=== PATIENT | female | born 1975 | race Caucasian/White ===

== ENCOUNTER 2024-01-08 08:24 | Inpatient (IN) ==
--- NOTE | 2024-01-08 08:48 | Emergency Department Note ---
History of Present Illness General Chief complaint: Abdominal Pain Stated complaint: R SIDED ABD PAIN Time Seen by Provider: 01/08/24 08:44 History of Present Illness Maximum Pain Intensity: 10 This is a 48-year-old female who presents to the emergency department via private vehicle with complaints of "right side/flank pain". Patient has history of kidney stones and this feels similar. Pain began yesterday. She noted right flank pain and vomiting. No fevers or chills. She denies any trauma or injury. She has a history of tubal ligation and kidney stone removal. She denies any recent kidney stones. No dysuria or hematuria. No aggravating or alleviating factors. She denies taking any pain medicine in the past 8 hours. She did note that with going up steps today/ambulating she was a bit more short of breath than usual. She also note that the pain in the right flank area worsened with exertion. No history of [place] or PE. Home Medications Medication Instructions Recorded Confirmed Type albuterol sulfate 90 mcg/actuation 2 puff inhalation Q6H PRN chest 01/08/24 01/08/24 History aerosol inhaler tightness bupropion HCl 300 mg 24 hr tablet, 300 mg PO DAILY 01/08/24 01/08/24 History extended release (Wellbutrin XL) cetirizine 10 mg tablet 10 mg PO QAM 01/08/24 01/08/24 History escitalopram oxalate 10 mg tablet 10 mg PO DAILY 01/08/24 01/08/24 History escitalopram oxalate 20 mg tablet 20 mg PO DAILY 01/08/24 01/08/24 History fluticasone propionate 50 2 spray intranasal QAM 01/08/24 01/08/24 History mcg/actuation nasal spray,suspension metformin 500 mg tablet,extended 500 mg PO DAILY 01/08/24 01/08/24 History release 24 hr sumatriptan succinate 50 mg tablet 50 mg PO DIRECTED PRN Migraine 01/08/24 01/08/24 History Headache Allergies Allergy/AdvReac Type Severity Reaction Status Date / Time Penicillins Allergy Intermediate Hives Verified 01/08/24 14:45 Past Med/Surg History Problem List (Updated 01/08/24 @ 16:58 by Jatin Fernandez) Chest pain at rest Atypical chest pain Abnormal ECG (Acute) Exertional dyspnea (Acute) Acute right flank pain (Acute) Prediabetes HLD (hyperlipidemia) Asthma Mood disorder Right upper quadrant pain Social History Smoking Status: Former smoker Hx Alcohol Use: No Hx Substance Use: No Preferred Language: Citizen Of [place] Communication Ability: Effective Database Marketing Analyst Required: No Beliefs That Will Affect Care: None Current Living Situation: Spouse and Family Other Information That Helps Us Care for You: No Feels Safe at Home: Yes Safety Concerns: Feels Safe At This Time Assistive Devices: None Review of Systems A total of 10 systems reviewed and were otherwise negative Physical Exam Vital Signs Vital Signs - 24 hr 01/08/24 08:33 01/08/24 09:17 01/08/24 09:35 Temperature 36.6 C Temperature Source Temporal Artery Scan Pulse Rate 88 75 Pulse Rate [Apical] 74 Pulse Rate from SpO2 Sensor Respiratory Rate 16 16 Blood Pressure 123/77 Blood Pressure [Left Arm] 113/60 Blood Pressure Mean 92 Blood Pressure Mean [Left Arm] 77 Blood Pressure Position [Left Arm] Semi-fowlers Pulse Oximetry 98 92 Oxygen Delivery Method Room Air Room Air Sepsis Recent Fever Within 48 Hours No Sepsis New/Unexplained Change in Mental Status N/A Sepsis Action Taken by Nursing No Action Required 01/08/24 09:45 01/08/24 10:00 01/08/24 10:30 Temperature Temperature Source Pulse Rate 72 73 71 Pulse Rate [Apical] Pulse Rate from SpO2 Sensor 71 73 71 Respiratory Rate 30 H 15 15 Blood Pressure 120/68 124/83 142/100 H Blood Pressure [Left Arm] Blood Pressure Mean 85 96 114 Blood Pressure Mean [Left Arm] Blood Pressure Position [Left Arm] Pulse Oximetry 94 95 94 Oxygen Delivery Method Sepsis Recent Fever Within 48 Hours Sepsis New/Unexplained Change in Mental Status Sepsis Action Taken by Nursing 01/08/24 11:01 01/08/24 11:30 01/08/24 13:00 Temperature Temperature Source Pulse Rate 73 77 Pulse Rate [Apical] Pulse Rate from SpO2 Sensor 73 78 Respiratory Rate 19 15 Blood Pressure 142/75 H 150/81 H 123/84 Blood Pressure [Left Arm] Blood Pressure Mean 91 104 97 Blood Pressure Mean [Left Arm] Blood Pressure Position [Left Arm] Pulse Oximetry 96 96 Oxygen Delivery Method Sepsis Recent Fever Within 48 Hours Sepsis New/Unexplained Change in Mental Status Sepsis Action Taken by Nursing 01/08/24 13:30 Temperature Temperature Source Pulse Rate 75 Pulse Rate [Apical] Pulse Rate from SpO2 Sensor Respiratory Rate 14 Blood Pressure 137/88 Blood Pressure [Left Arm] Blood Pressure Mean 101 Blood Pressure Mean [Left Arm] Blood Pressure Position [Left Arm] Pulse Oximetry 95 Oxygen Delivery Method Sepsis Recent Fever Within 48 Hours Sepsis New/Unexplained Change in Mental Status Sepsis Action Taken by Nursing VITAL SIGNS - Vital signs and nursing notes were reviewed. Stable and afebrile. GENERAL -48-year-old female appearing her stated age who is in no acute distress. Communicates well with provider and answers questions appropriately. SKIN - Without rashes. No meningeal or petechial rash. HEAD - NC/AT. EYES - Sclera anicteric. NECK - Neck with FROM. No nuchal rigidity. LUNGS - Chest wall symmetric without accessory muscle use, intercostals retractions, or central cyanosis. Normal vesicular breath sounds CTA B/L. No wheezes, rales, or rhonchi appreciated. CARDIAC - RRR ABDOMEN - Abdominal contour normal without pulsations or visible masses. BS normoactive all four quadrants. No tenderness, palpable masses, hepatosplenomegaly, or ascites noted. EXTREMITIES - No clubbing or peripheral cyanosis. +5/5 strength noted in UE/LE bilaterally. NEUROLOGIC - Cranial nerves II through XII grossly intact. PSYCH -alert, oriented and pleasant on exam. Pt is very pleasant and interacts well with examiner. Course Administered Medications Acetaminophen (Acetaminophen 325 Mg Tab) 650 mg PO Q6H [facility] Stop: 02/08/24 09:59 Last Admin: 01/09/24 15:53 Dose: 650 mg Documented By: Admin: 01/09/24 10:49 Dose: 650 mg Documented By: JANIS Aspirin (Aspirin 81 Mg Ectab) 81 mg PO QAM [facility] Stop: 02/08/24 08:59 Last Admin: 01/09/24 10:31 Dose: 81 mg Documented By: JANIS Atorvastatin Calcium (Atorvastatin 40 Mg Tab) 40 mg PO QAM [facility] Stop: 02/08/24 12:14 Last Admin: 01/09/24 13:23 Dose: 40 mg Documented By: JANIS Bupropion HCl (Bupropion Xl 300 Mg Tabcr) 300 mg PO DAILY [facility] Stop: 02/08/24 08:59 Last Admin: 01/09/24 10:31 Dose: 300 mg Documented By: JANIS Cetirizine HCl (Cetirizine Hcl 10 Mg Tablet) 10 mg PO QAM [facility] Stop: 02/08/24 08:59 Last Admin: 01/09/24 10:31 Dose: 10 mg Documented By: JANIS Diclofenac Sodium (Diclofenac Sod 1% Gel 100 Gm Tube) 4 gm EXT Q6H [facility]; Protocol Stop: 02/08/24 09:59 Last Admin: 01/09/24 15:54 Dose: Not Given Documented By: Admin: 01/09/24 10:49 Dose: 4 gm Documented By: JANIS Docusate Sodium (Docusate Sodium 100 Mg Cap) 100 mg PO BID [facility] Stop: 02/08/24 11:59 Last Admin: 01/09/24 13:22 Dose: 100 mg Documented By: JANIS Enoxaparin Sodium (Enoxaparin Inj 40 Mg/0.4 Ml Syr) 40 mg SQ Q24H [facility] Stop: 02/07/24 16:59 Last Admin: 01/08/24 16:51 Dose: 40 mg Documented By: SUSANA Escitalopram Oxalate (Escitalopram Oxalate 10 Mg Tab) 10 mg PO DAILY [facility] Stop: 02/08/24 08:59 Last Admin: 01/09/24 10:32 Dose: 10 mg Documented By: JANIS Escitalopram Oxalate (Escitalopram Oxalate 20 Mg Tab) 20 mg PO DAILY [facility] Stop: 02/08/24 08:59 Last Admin: 01/09/24 10:32 Dose: 20 mg Documented By: JANIS Fluticasone Propionate (Fluticasone Propionate Na Spr 16 Gm Btl) 2 sprays NA QAM [facility] Stop: 02/08/24 08:59 Last Admin: 01/09/24 12:21 Dose: Not Given Documented By: JANIS Insulin Aspart (Insulin Aspart Per Unit Charge) 0 units SC ACHS [facility] Stop: 02/07/24 20:59 Last Admin: 01/09/24 13:22 Dose: 4 units Documented By: JANIS Co-signed By: CARRIE Admin: 01/09/24 09:34 Dose: Not Given Documented By: Admin: 01/08/24 20:50 Dose: Not Given Documented By: COLEMAN Losartan Potassium (Losartan Potassium 25 Mg Tab) 12.5 mg PO QAM [facility] Stop: 02/08/24 12:14 Last Admin: 01/09/24 13:23 Dose: 12.5 mg Documented By: JANIS Methocarbamol (Methocarbamol 500 Mg Tablet) 500 mg PO TID PRN PRN Reason: Moderate Pain (Scale 4, 5, 6) Stop: 02/07/24 14:49 Last Admin: 01/09/24 10:35 Dose: 500 mg Documented By: Admin: 01/08/24 21:59 Dose: 500 mg Documented By: COLEMAN Morphine Sulfate (Morphine Sulfate 2 Mg/Ml Carp) 1 mg IV Q4H PRN PRN Reason: Pain Stop: 01/22/24 14:49 Last Admin: 01/09/24 06:11 Dose: 1 mg Documented By: Admin: 01/09/24 02:10 Dose: 1 mg Documented By: COLEMAN Oxycodone HCl (Oxycodone Hcl Ir 5 Mg Tab (Immediate Release)) 5 mg PO Q6H PRN PRN Reason: Moderate Pain (Scale 4, 5, 6) Stop: 01/23/24 09:53 Last Admin: 01/09/24 14:43 Dose: 5 mg Documented By: JANIS Discontinued Medications Aspirin (Aspirin 81 Mg Ectab) 81 mg PO ONCE ONE Stop: 01/08/24 16:05 Last Admin: 01/08/24 16:51 Dose: 81 mg Documented By: SUSANA Hydromorphone HCl (Hydromorphone Inj 0.5 Mg/0.5 Ml Syr) 0.5 mg IV NOW STA Stop: 01/08/24 10:08 Last Admin: 01/08/24 10:11 Dose: 0.5 mg Documented By: CEF Sodium Chloride (Nss) 1,000 mls @ 999 mls/hr IV .Q1H1M [facility] Stop: 01/08/24 10:00 Last Infusion: 01/08/24 11:32 Dose: Infused Documented By: Admin: 01/08/24 09:03 Dose: 999 mls/hr Documented By: CEF Ioversol (Optiray 320 125ml) 118 ml IV ONCE ONE Stop: 01/08/24 12:37 Last Admin: 01/08/24 12:36 Dose: 118 ml Documented By: CALI Ketorolac Tromethamine (Ketorolac Tromethamine 15 Mg/Ml Vial) 10 mg IV NOW ONE Stop: 01/08/24 08:49 Last Admin: 01/08/24 08:59 Dose: 10 mg Documented By: FUAD Ondansetron HCl (Ondansetron Inj 2 Mg/Ml 2 Ml Vial) 4 mg IV NOW STA Stop: 01/08/24 08:49 Last Admin: 01/08/24 08:59 Dose: 4 mg Documented By: FUAD Medical Decision Making Laboratory Data 01/09/24 05:53 01/09/24 05:53 Lab Results 01/08/24 01/08/24 Range/Units 09:04 12:01 WBC 6.60 (4.8-10.8) K/ul RBC 4.07 L (4.20-5.40) M/uL Hgb 12.3 (12.0-16.0) g/dl Hct 37.5 (37.0-47.0) % MCV 92.1 (80.0-100.0) fL MCH 30.2 (25.0-34.0) pg MCHC 32.8 (32.0-36.0) g/dL RDW Std Deviation 43.3 (36.4-46.3) fL RDW Coeff of Matesu 12.9 (11.5-14.5) % Plt Count 237 (130-400) K/uL MPV 9.3 L (9.4-12.4) fL Immature Gran % (Auto) 0.5 % Neut % (Auto) 63.7 % Lymph % (Auto) 26.8 % Wells % (Auto) 6.2 % Eos % (Auto) 2.0 % Baso % (Auto) 0.8 % Neut # (Auto) 4.21 (1.40-6.50) K/uL Lymph # (Auto) 1.77 (1.20-3.40) K/uL Wells # (Auto) 0.41 (0.11-0.59) K/uL Eos # (Auto) 0.13 (0.00-0.50) K/uL Baso # (Auto) 0.05 (0.00-0.20) K/uL Immature Gran # (Auto) 0.03 (0.01-0.20) K/uL Sodium 138 (136-145) mmol/L Potassium 3.9 (3.5-5.1) mmol/L Chloride 103 (98-107) mmol/L Carbon Dioxide 29 (21-32) mmol/L Anion Gap 6 (3-11) BUN 14 (6-23) mg/dl Creatinine 0.80 (0.6-1.2) mg/dl Est Cr Clr Drug Dosing 98.9 ml/min Est GFR ( Amer) 101.0 ml/min Est GFR (Non-Af Amer) 87.2 ml/min BUN/Creatinine Ratio 17.5 (10-20) Glucose 120 H (70-99(Fasting)) mg/dl Calcium 8.7 (8.6-10.3) mg/dl Total Bilirubin 0.3 (0.2-1.0) mg/dl AST 12 L (13-39) U/L ALT 15 (7-52) U/L Alkaline Phosphatase 70 (34-104) U/L Troponin I High Sens < 2.3 (0-14) pg/ml Total Protein 6.6 (6.0-8.3) gm/dl Albumin 3.9 (3.4-5.0) gm/dl Globulin 2.7 (2.5-4.0) gm/dl Albumin/Globulin Ratio 1.4 (0.9-2) Lipase 22 (11-82) U/L HCG, Qual Negative (Negative) Urine Color Yellow Urine Appearance Clear (Clear) Urine pH 7.0 (4.5-7.5) Ur Specific Ford 1.025 (1.000-1.030) Urine Protein Negative (Negative) Urine Glucose (UA) Negative (Negative) Urine Ketones Negative (Negative) Urine Blood Negative (Negative) Urine Nitrite Negative (Negative) Urine Bilirubin Negative (Negative) Urine Urobilinogen Negative (Negative) Ur Leukocyte Esterase Negative (Negative) Imaging Data Radiologist's Impression: Abdomen/Pelvis CT 01/08/24 08:48 CT SCAN OF THE ABDOMEN AND PELVIS WITHOUT IV CONTRAST CLINICAL HISTORY: Right flank pain. COMPARISON STUDY: No priors. TECHNIQUE: CT scan of the abdomen and pelvis is performed from the lung bases to the proximal femora. Images are reviewed in the axial, sagittal, and coronal planes. IV contrast was not administered for this examination. A dose lowering technique was utilized adhering to the principles of ALARA. CT DOSE: 1452.68 mGy.cm FINDINGS: Lung bases: The heart is normal in size and without pericardial effusion. There is a 5 mm left lower lobe pulmonary nodule seen on image #16. The lung bases are otherwise clear. Liver: The unenhanced liver is enlarged, measuring 18.7 cm in length. Attenuation is diffusely diminished indicating steatosis. Fatty sparing is seen adjacent to the gallbladder fossa. There is no intrahepatic biliary ductal dilatation. Gallbladder: Unremarkable. Spleen: Normal in size and attenuation. Pancreas: Unremarkable. Adrenal glands: Unremarkable. Kidneys: The unenhanced kidneys are normal in size and without hydronephrosis. No renal calculi are identified and there is no ureteral stone. There is no evidence of contour deforming renal mass lesion. Abdominal vasculature: The abdominal aorta is normal in course and caliber. Bowel: There are scattered colonic diverticula without CT evidence of acute diverticulitis. No bowel obstruction is seen. The appendix is well-visualized and normal. Peritoneum: There is no intraperitoneal free air or abdominal ascites. There is a fat-containing umbilical hernia. Lymphadenopathy: None. Pelvic viscera: The bladder is normal as visualized. The uterus is mildly enlarged, heterogeneous, lobular suggesting fibroids. No adnexal lesion is seen. Skeletal structures: No lytic or blastic lesions are seen. Sclerotic change is noted in the sacroiliac joints. IMPRESSION: 1. No acute infectious or inflammatory findings are identified in the abdomen or pelvis. 2. Hepatomegaly and hepatic steatosis. 3. A 5 mm pulmonary nodule is seen at the left lung base. This is not highly suspicious, and a 3-month follow-up chest CT is recommended for reassessment and full evaluation of the thorax. 4. The appearance of the uterus suggests fibroids. 5. Additional findings as above. ACT 112: Negative or not required by law. Electronically signed by: Yeyo Celis M.D. 01/08/2024 11:28 AM Chest CTA 01/08/24 11:49 CT angio chest PE protocol CLINICAL HISTORY: R flank pain TECHNIQUE: Multidetector row helical CT of the chest was performed with angiographic protocol. Coronal and sagittal reformations were obtained. Coronal and sagittal MIPS were obtained from the axial data set and were submitted for review. Automated dose lowering techniques and/or adjustment according to patient size were utilized for this exam. CT DOSE: 845.24 mGy.cm Comparison: None available at the time of this dictation. FINDINGS: Lungs and pleura: There is a 5 mm nodule of the left lung base (series 4 image 169). Heart and pericardium: Heart size is normal. No pericardial effusion. Vessels: Evaluation for pulmonary embolism is limited due to suboptimal contrast timing. No evidence of central, lobar, or segmental embolus. Mediastinum and nancy: Unremarkable. Chest wall and lower neck: Unremarkable. Abdomen: For findings below the diaphragm, please refer to CT of the abdomen dated the same. Bones: Mild degenerative changes are seen. IMPRESSION: 1. No acute abnormality and in particular no evidence of pulmonary embolus. 2. Small pulmonary nodule is in the left lower lobe. According to Fleischner criteria, no follow-up is required in low risk patients, in high-risk patients, a 12 month follow-up CT can be optionally performed. ACT 112: Negative or not required by law. Electronically signed by: Ramiro Ni M.D. 01/08/2024 12:51 PM MDM Narrative Patient was seen and evaluated as above in room A09. Review was performed of triage nursing notes and vital signs. Patient presents with right flank pain. History of kidney stones. Options of care were discussed with the patient. IV access was established. Labs were drawn. IV Toradol was ordered, IV fluids for hydration, as well as IV Zofran for nausea. She was reevaluated with minimal improvement. Labs reveal no leukocytosis or concerning anemia. No emergent metabolic disturbance. Mild hyperglycemia 120. Troponin negative. hCG negative. Lipase normal. Urinalysis negative. CT scan abdomen/pelvis was essentially negative for acute process. Incidentals reviewed with the patient. Decision was made to proceed with a CTA noting the right sided pain worse with exertion but also exertional dyspnea today. No PE seen on the CTA. EKG was also performed and abnormalities were noted. Interpretation normal sinus rhythm at a rate of 74 bpm. QTc 468. QRS 82. Prolonged QT noted. T wave inversions noted. Although the patient's presentation is less likely be cardiac in nature, noting the abnormal EKG without previous to compare, exertional symptoms in the setting of exertional dyspnea today we will proceed with further evaluation and management in the inpatient setting. Case discussed with the hospitalist service. Please refer to further documentation regarding her stay. GCS: 15 In the evaluation and treatment of this patient the following differential diagnoses were entertained: [place], PE, pericarditis, costochondritis, renal infarct, kidney stone, UTI, pyelonephritis, acute cholecystitis, among others Impression & Plan Acute right flank pain, Exertional dyspnea, Abnormal ECG Discharge Plan Visit Data Chief Complaint: Abdominal Pain Stated Complaint: R SIDED ABD PAIN ED Provider: Asad Cox ED Midlevel Provider: Carlos Rich Discharge Problem: Acute right flank pain, Exertional dyspnea, Abnormal ECG Patient Disposition: Admitted As Inpatient Condition: Good Discharge Instructions Interventions: ED Discharge Assessment Last Done: 01/08/24 15:08 Addendum January 09, 2024 16:40 I was consulted by the Advanced Practice Provider and was substantively involved in the patient's visit.This includes aspects of the HPI, MDM, diagnostic interpretations, and disposition/plan. I discussed the case with the ILAN and agree with the findings and plan as documented in ILAN Allenat 's note.
[2024-01-08] MEDS: ONDANSETRON INJ 2 MG/ML 2 ML VIAL IV STA (08:59)
[2024-01-08] MEDS: KETOROLAC TROMETHAMINE 15 MG/ML VIAL IV ONE (08:59)
[2024-01-08] MEDS: SODIUM CHLORIDE 0.9% 1,000 ML IV SCH (09:03)
[2024-01-08 09:31] LABS: Basophils # (auto) 0.05 K/uL (0.00-0.20); Basophils % (auto) 0.8 %; Eosinophils # (auto) 0.13 K/uL (0.00-0.50); Hematocrit (blood only) 37.5 % (37.0-47.0); Hemoglobin 12.3 g/dl (12.0-16.0); Immature Granulocytes # (auto) 0.03 K/uL (0.01-0.20); Immature Granulocytes % (auto) 0.5 %; Lymphocytes # (auto) 1.77 K/uL (1.20-3.40); Lymphocytes % (auto) 26.8 %; Mean Corpuscular Hemoglobin 30.2 pg (25.0-34.0); Mean Corpuscular Hgb Conc 32.8 g/dL (32.0-36.0); Mean Corpuscular Volume 92.1 fL (80.0-100.0); Mean Platelet Volume 9.3 fL (9.4-12.4); Monocytes # (auto) 0.41 K/uL (0.11-0.59); Monocytes % (auto) 6.2 %; Neutrophils # (auto) 4.21 K/uL (1.40-6.50); Neutrophils % (auto) 63.7 %; Platelet Count 237 K/uL (130-400); RDW Coefficient of Variation 12.9 % (11.5-14.5); RDW Standard Deviation 43.3 fL (36.4-46.3); Red Blood Count 4.07 M/uL (4.20-5.40)
[2024-01-08 09:45] LABS: Alanine Aminotransferase 15 U/L (7-52); Albumin Globulin Ratio 1.4 (0.9-2); Albumin Level 3.9 gm/dl (3.4-5.0); Alkaline Phosphatase 70 U/L (34-104); Anion Gap 6 (3-11); Aspartate Aminotransferase 12 U/L (13-39); BUN Creatinine Ratio 17.5 (10-20); Bilirubin,Total 0.3 mg/dl (0.2-1.0); Blood Urea Nitrogen 14 mg/dl (6-23); Calcium 8.7 mg/dl (8.6-10.3); Carbon Dioxide 29 mmol/L (21-32); Chloride 103 mmol/L (98-107); Creatinine Clr Calc Pharmacy 98.9 ml/min; Est GFR (Non-African American) 87.2 ml/min; Globulin 2.7 gm/dl (2.5-4.0); Glucose 120 mg/dl (70-99(Fasting)); Lipase 22 U/L (11-82); Potassium 3.9 mmol/L (3.5-5.1); Sodium 138 mmol/L (136-145); Total Protein 6.6 gm/dl (6.0-8.3)
[2024-01-08 09:47] LABS: Pregnancy Test, Serum Negative (Negative)
[2024-01-08] MEDS: HYDROmorphone INJ 0.5 MG/0.5 ML SYR IV STA (10:11)
--- NOTE | 2024-01-08 11:30 | CT Scan Report ---
CT SCAN OF THE ABDOMEN AND PELVIS WITHOUT IV CONTRAST CLINICAL HISTORY: Right flank pain. COMPARISON STUDY: No priors. TECHNIQUE: CT scan of the abdomen and pelvis is performed from the lung bases to the proximal femora. Images are reviewed in the axial, sagittal, and coronal planes. IV contrast was not administered for this examination. A dose lowering technique was utilized adhering to the principles of ALARA. CT DOSE: 1452.68 mGy.cm FINDINGS: Lung bases: The heart is normal in size and without pericardial effusion. There is a 5 mm left lower lobe pulmonary nodule seen on image #16. The lung bases are otherwise clear. Liver: The unenhanced liver is enlarged, measuring 18.7 cm in length. Attenuation is diffusely dimini shed indicating steatosis. Fatty sparing is seen adjacent to the gallbladder fossa. There is no intra hepatic biliary ductal dilatation. Gallbladder: Unremarkable. Spleen: Normal in size and attenuation. Pancreas: Unremarkable. Adrenal glands: Unremarkable. Kidneys: The unenhanced kidneys are normal in size and without hydronephrosis. No renal calculi are i dentified and there is no ureteral stone. There is no evidence of contour deforming renal mass lesion . Abdominal vasculature: The abdominal aorta is normal in course and caliber. Bowel: There are scattered colonic diverticula without CT evidence of acute diverticulitis. No bowel obstruction is seen. The appendix is well-visualized and normal. Peritoneum: There is no intraperitoneal free air or abdominal ascites. There is a fat-containing umbi lical hernia. Lymphadenopathy: None. Pelvic viscera: The bladder is normal as visualized. The uterus is mildly enlarged, heterogeneous, lo bular suggesting fibroids. No adnexal lesion is seen. Skeletal structures: No lytic or blastic lesions are seen. Sclerotic change is noted in the sacroilia c joints. IMPRESSION: 1. No acute infectious or inflammatory findings are identified in the abdomen or pelvis. 2. Hepatomegaly and hepatic steatosis. 3. A 5 mm pulmonary nodule is seen at the left lung base. This is not highly suspicious, and a 3-guy h follow-up chest CT is recommended for reassessment and full evaluation of the thorax. 4. The appearance of the uterus suggests fibroids. 5. Additional findings as above. ACT 112: Negative or not required by law. Electronically signed by: Yeyo Celis M.D. 01/08/2024 11:28 AM
[2024-01-08 12:19] LABS: Troponin I High Sensitivity < 2.3 pg/ml (0-14)
[2024-01-08] MEDS: OPTIRAY 320 125ml IV ONE (12:36)
--- NOTE | 2024-01-08 12:52 | CT Scan Report ---
CT angio chest PE protocol CLINICAL HISTORY: R flank pain TECHNIQUE: Multidetector row helical CT of the chest was performed with angiographic protocol. Jaime l and sagittal reformations were obtained. Coronal and sagittal MIPS were obtained from the axial dennis a set and were submitted for review. Automated dose lowering techniques and/or adjustment according to patient size were utilized for this exam. CT DOSE: 845.24 mGy.cm Comparison: None available at the time of this dictation. FINDINGS: Lungs and pleura: There is a 5 mm nodule of the left lung base (series 4 image 169). Heart and pericardium: Heart size is normal. No pericardial effusion. Vessels: Evaluation for pulmonary embolism is limited due to suboptimal contrast timing. No evidence of central, lobar, or segmental embolus. Mediastinum and nancy: Unremarkable. Chest wall and lower neck: Unremarkable. Abdomen: For findings below the diaphragm, please refer to CT of the abdomen dated the same. Bones: Mild degenerative changes are seen. IMPRESSION: 1. No acute abnormality and in particular no evidence of pulmonary embolus. 2. Small pulmonary nodule is in the left lower lobe. According to Fleischner criteria, no follow-up is required in low risk patients, in high-risk patients, a 12 month follow-up CT can be optionally pe rformed. ACT 112: Negative or not required by law. Electronically signed by: Ramiro Ni M.D. 01/08/2024 12:51 PM
[2024-01-08 13:09] LABS: Appearance Urine Clear (Clear); Bilirubin Urine Negative (Negative); Blood Urine Negative (Negative); Color Urine Yellow; Glucose Urine UA Negative (Negative); Ketones Urine Negative (Negative); Leukocyte Esterase Urine Negative (Negative); Nitrite Urine Negative (Negative); Protein Urine Negative (Negative); Specific Gravity Urine 1.025 (1.000-1.030); Urobilinogen Urine Negative (Negative)
--- NOTE | 2024-01-08 15:02 | History & Physical Report ---
Date of Service January 08, 2024 Assessment & Plan (1) Right upper quadrant pain: (2) Mood disorder: (3) Asthma: (4) HLD (hyperlipidemia): (5) Prediabetes: Plan Assessment and plan: RUQ painunclear etiology CT A/P with no evidence for kidney stones Check right rib x-ray/abdominal ultrasound LFTs WNL, trend CMP Abnormal EKG: EKG shows T wave inversions, no chest pain, negative troponin Trend troponin, recheck EKG in a.m., likely will need stress test DOEHx asthma: Use albuterol inhaler as needed at home CT chest negative for PE or acute findings As needed nebs for SOB/wheezing Hx of mood disorder: Continue Lexapro/Wellbutrin, monitor QTc Hx prediabetes: Hold metformin while inpatient, recheck A1c Twice daily BGM Left lung nodule: CT showed 5 mm pulmonary nodule, follow-up outpatient3-month follow-up chest CT recommended Full code DVT prophylaxis: Lovenox A total of 60 mins was spent coordinating, documenting, and providing care for this patient excluding time spent in the performance of separately billed services. This included personally viewing all current laboratories and imaging studies, medication reconciliation, outpatient chart review, and discussion with specialist. Admission and Anticipated Discharge Date Admission Date: 01/08/24 History of Present Illness Chief Complaint: Right upper quadrant pain, vomiting Primary Care Provider: Karin Porter MD The patient is a 48-year-old female with a past medical history of kidney stones, mood disorder, anxiety, depression, HLD, prediabetes, asthma who presents to the ED today with complaints of right upper quadrant pain and dyspnea with exertion x 1 day. Reports that she has had kidney stones in the past and it felt similar. Also reported vomiting x 1 yesterday. Denies any urinary symptoms, denies any hematuria. Does report some intermittent wheezing. On exam, there is right upper quadrant tenderness even with light palpation. Reports she made a telemedicine appointment with her PCP today and was directed to come to the ER. Denies any fevers/chest pain/blood in stool/cough/respiratory symptoms. On arrival to the ED, UA was negative, labs are fairly unremarkable Her EKG showed sinus rhythm with some T wave inversions Troponin was negative Chest CTA showed: 1. No acute abnormality and in particular no evidence of pulmonary embolus. 2. Small pulmonary nodule is in the left lower lobe. According to Fleischner criteria, no follow-up is required in low risk patients, in high-risk patients, a 12 month follow-up CT can be optionally performed. Abdomen/pelvis CT showed: 1. No acute infectious or inflammatory findings are identified in the abdomen or pelvis. 2. Hepatomegaly and hepatic steatosis. 3. A 5 mm pulmonary nodule is seen at the left lung base. This is not highly suspicious, and a 3-month follow-up chest CT is recommended for reassessment and full evaluation of the thorax. 4. The appearance of the uterus suggests fibroids. 5. Additional findings as above. Allergies Allergy/AdvReac Type Severity Reaction Status Date / Time Penicillins Allergy Intermediate Hives Verified 01/08/24 14:45 Home Medications Medication Instructions Recorded Confirmed Type albuterol sulfate 90 mcg/actuation 2 puff inhalation Q6H PRN chest 01/08/24 01/08/24 History aerosol inhaler tightness bupropion HCl 300 mg 24 hr tablet, 300 mg PO DAILY 01/08/24 01/08/24 History extended release (Wellbutrin XL) cetirizine 10 mg tablet 10 mg PO QAM 01/08/24 01/08/24 History escitalopram oxalate 10 mg tablet 10 mg PO DAILY 01/08/24 01/08/24 History escitalopram oxalate 20 mg tablet 20 mg PO DAILY 01/08/24 01/08/24 History fluticasone propionate 50 2 spray intranasal QAM 01/08/24 01/08/24 History mcg/actuation nasal spray,suspension metformin 500 mg tablet,extended 500 mg PO DAILY 01/08/24 01/08/24 History release 24 hr sumatriptan succinate 50 mg tablet 50 mg PO DIRECTED PRN Migraine 01/08/24 01/08/24 History Headache Past Med/Surg History Problem List (Updated 01/08/24 @ 16:58 by Jatin Fernandez) Chest pain at rest Atypical chest pain Abnormal ECG (Acute) Exertional dyspnea (Acute) Acute right flank pain (Acute) Prediabetes HLD (hyperlipidemia) Asthma Mood disorder Right upper quadrant pain Social History Smoking Status: Former smoker Hx Alcohol Use: No Hx Substance Use: No Preferred Language: [place] Communication Ability: Effective Fish Technologist Required: No Beliefs That Will Affect Care: None Current Living Situation: Spouse and Family Other Information That Helps Us Care for You: No Feels Safe at Home: Yes Safety Concerns: Feels Safe At This Time Assistive Devices: None Review of Systems Review of Systems: All negative aside from stated in HPI Physical Exam Constitutional: WD/WN, vitals as above Eyes: PERRL, conjunctivae normal, anicteric sclerae ENMT: external ear and nose normal, oropharynx normal Neck: trachea midline, no thyromegaly Respiratory: normal respiratory effort, lungs clear to auscultation + audible wheezes (Expiratory) Cardiovascular: RRR, no murmur, no edema Chest (Breasts): normal inspection/palpation of breasts Gastrointestinal (Abdomen): normal bowel sounds, soft, nontender, no hepatosplenomegaly Inspection/Auscultation: normal bowel sounds Percussion/Palpation: + abdomen tender; no guarding Musculoskeletal: no cyanosis or clubbing, extremities motor strength 5/5 Skin: no rashes, warm and dry Neurologic: patellar DTR's 2+ bilat, sensation intact and PERRL, EOMI, accommodation nl, no face palsy, no dysarthria Psychiatric: A+Ox3, euthymic affect Lymphatic: no cervical or axillary lymphadenopathy Results & Data Results & Data Vital Signs (Past 12 Hours) Vital Signs Temp Pulse Pulse Resp BP BP Pulse Ox 01/08/24 13:00 77 15 123/84 96 01/08/24 11:30 73 19 150/81 H 96 01/08/24 11:01 142/75 H 01/08/24 10:30 71 15 142/100 H 94 01/08/24 10:00 73 15 124/83 95 01/08/24 09:45 72 30 H 120/68 94 01/08/24 09:35 75 01/08/24 09:17 74 16 113/60 92 01/08/24 08:33 36.6 C 88 16 123/77 98 O2 Del Method 01/08/24 13:00 01/08/24 11:30 01/08/24 11:01 01/08/24 10:30 01/08/24 10:00 01/08/24 09:45 01/08/24 09:35 01/08/24 09:17 Room Air 01/08/24 08:33 Room Air Laboratory Results Laboratory Results WBC 6.60 K/ul (4.8-10.8) 01/08/24 09:04 RBC 4.07 M/uL (4.20-5.40) L 01/08/24 09:04 Hgb 12.3 g/dl (12.0-16.0) 01/08/24 09:04 Hct 37.5 % (37.0-47.0) 01/08/24 09:04 MCV 92.1 fL (80.0-100.0) 01/08/24 09:04 MCH 30.2 pg (25.0-34.0) 01/08/24 09:04 MCHC 32.8 g/dL (32.0-36.0) 01/08/24 09:04 RDW Std Deviation 43.3 fL (36.4-46.3) 01/08/24 09:04 RDW Coeff of Mateus 12.9 % (11.5-14.5) 01/08/24 09:04 Plt Count 237 K/uL (130-400) 01/08/24 09:04 MPV 9.3 fL (9.4-12.4) L 01/08/24 09:04 Immature Gran % (Auto) 0.5 % 01/08/24 09:04 Neut % (Auto) 63.7 % 01/08/24 09:04 Lymph % (Auto) 26.8 % 01/08/24 09:04 [place] % (Auto) 6.2 % 01/08/24 09:04 Eos % (Auto) 2.0 % 01/08/24 09:04 Baso % (Auto) 0.8 % 01/08/24 09:04 Neut # (Auto) 4.21 K/uL (1.40-6.50) 01/08/24 09:04 Lymph # (Auto) 1.77 K/uL (1.20-3.40) 01/08/24 09:04 [place] # (Auto) 0.41 K/uL (0.11-0.59) 01/08/24 09:04 Eos # (Auto) 0.13 K/uL (0.00-0.50) 01/08/24 09:04 Baso # (Auto) 0.05 K/uL (0.00-0.20) 01/08/24 09:04 Immature Gran # (Auto) 0.03 K/uL (0.01-0.20) 01/08/24 09:04 Sodium 138 mmol/L (136-145) 01/08/24 09:04 Potassium 3.9 mmol/L (3.5-5.1) 01/08/24 09:04 Chloride 103 mmol/L (98-107) 01/08/24 09:04 Carbon Dioxide 29 mmol/L (21-32) 01/08/24 09:04 Anion Gap 6 (3-11) 01/08/24 09:04 BUN 14 mg/dl (6-23) 01/08/24 09:04 Creatinine 0.80 mg/dl (0.6-1.2) 01/08/24 09:04 Est Cr Clr Drug Dosing 98.9 ml/min 01/08/24 09:04 Est GFR ( Amer) 101.0 ml/min 01/08/24 09:04 Est GFR (Non-Af Amer) 87.2 ml/min 01/08/24 09:04 BUN/Creatinine Ratio 17.5 (10-20) 01/08/24 09:04 Glucose 120 mg/dl (70-99(Fasting)) H 01/08/24 09:04 Calcium 8.7 mg/dl (8.6-10.3) 01/08/24 09:04 Total Bilirubin 0.3 mg/dl (0.2-1.0) 01/08/24 09:04 AST 12 U/L (13-39) L 01/08/24 09:04 ALT 15 U/L (7-52) 01/08/24 09:04 Alkaline Phosphatase 70 U/L (34-104) 01/08/24 09:04 Troponin I High Sens < 2.3 pg/ml (0-14) 01/08/24 09:04 Total Protein 6.6 gm/dl (6.0-8.3) 01/08/24 09:04 Albumin 3.9 gm/dl (3.4-5.0) 01/08/24 09:04 Globulin 2.7 gm/dl (2.5-4.0) 01/08/24 09:04 Albumin/Globulin Ratio 1.4 (0.9-2) 01/08/24 09:04 Lipase 22 U/L (11-82) 01/08/24 09:04 HCG, Qual Negative (Negative) 01/08/24 09:04 Urine Color Yellow 01/08/24 12:01 Urine Appearance Clear (Clear) 01/08/24 12:01 Urine pH 7.0 (4.5-7.5) 01/08/24 12:01 Ur Specific [place] 1.025 (1.000-1.030) 01/08/24 12:01 Urine Protein Negative (Negative) 01/08/24 12:01 Urine Glucose (UA) Negative (Negative) 01/08/24 12:01 Urine Ketones Negative (Negative) 01/08/24 12:01 Urine Blood Negative (Negative) 01/08/24 12:01 Urine Nitrite Negative (Negative) 01/08/24 12:01 Urine Bilirubin Negative (Negative) 01/08/24 12:01 Urine Urobilinogen Negative (Negative) 01/08/24 12:01 Ur Leukocyte Esterase Negative (Negative) 01/08/24 12:01 Impressions Abdomen/Pelvis CT 01/08/24 08:48 CT SCAN OF THE ABDOMEN AND PELVIS WITHOUT IV CONTRAST CLINICAL HISTORY: Right flank pain. COMPARISON STUDY: No priors. TECHNIQUE: CT scan of the abdomen and pelvis is performed from the lung bases to the proximal femora. Images are reviewed in the axial, sagittal, and coronal planes. IV contrast was not administered for this examination. A dose lowering technique was utilized adhering to the principles of ALARA. CT DOSE: 1452.68 mGy.cm FINDINGS: Lung bases: The heart is normal in size and without pericardial effusion. There is a 5 mm left lower lobe pulmonary nodule seen on image #16. The lung bases are otherwise clear. Liver: The unenhanced liver is enlarged, measuring 18.7 cm in length. Attenuation is diffusely diminished indicating steatosis. Fatty sparing is seen adjacent to the gallbladder fossa. There is no intrahepatic biliary ductal dilatation. Gallbladder: Unremarkable. Spleen: Normal in size and attenuation. Pancreas: Unremarkable. Adrenal glands: Unremarkable. Kidneys: The unenhanced kidneys are normal in size and without hydronephrosis. No renal calculi are identified and there is no ureteral stone. There is no evidence of contour deforming renal mass lesion. Abdominal vasculature: The abdominal aorta is normal in course and caliber. Bowel: There are scattered colonic diverticula without CT evidence of acute diverticulitis. No bowel obstruction is seen. The appendix is well-visualized and normal. Peritoneum: There is no intraperitoneal free air or abdominal ascites. There is a fat-containing umbilical hernia. Lymphadenopathy: None. Pelvic viscera: The bladder is normal as visualized. The uterus is mildly enlarged, heterogeneous, lobular suggesting fibroids. No adnexal lesion is seen. Skeletal structures: No lytic or blastic lesions are seen. Sclerotic change is noted in the sacroiliac joints. IMPRESSION: 1. No acute infectious or inflammatory findings are identified in the abdomen or pelvis. 2. Hepatomegaly and hepatic steatosis. 3. A 5 mm pulmonary nodule is seen at the left lung base. This is not highly suspicious, and a 3-month follow-up chest CT is recommended for reassessment and full evaluation of the thorax. 4. The appearance of the uterus suggests fibroids. 5. Additional findings as above. ACT 112: Negative or not required by law. Electronically signed by: Yeyo Celis M.D. 01/08/2024 11:28 AM Chest CTA 01/08/24 11:49 CT angio chest PE protocol CLINICAL HISTORY: R flank pain TECHNIQUE: Multidetector row helical CT of the chest was performed with angiographic protocol. Coronal and sagittal reformations were obtained. Coronal and sagittal MIPS were obtained from the axial data set and were submitted for review. Automated dose lowering techniques and/or adjustment according to patient size were utilized for this exam. CT DOSE: 845.24 mGy.cm Comparison: None available at the time of this dictation. FINDINGS: Lungs and pleura: There is a 5 mm nodule of the left lung base (series 4 image 169). Heart and pericardium: Heart size is normal. No pericardial effusion. Vessels: Evaluation for pulmonary embolism is limited due to suboptimal contrast timing. No evidence of central, lobar, or segmental embolus. Mediastinum and nancy: Unremarkable. Chest wall and lower neck: Unremarkable. Abdomen: For findings below the diaphragm, please refer to CT of the abdomen dated the same. Bones: Mild degenerative changes are seen. IMPRESSION: 1. No acute abnormality and in particular no evidence of pulmonary embolus. 2. Small pulmonary nodule is in the left lower lobe. According to Fleischner criteria, no follow-up is required in low risk patients, in high-risk patients, a 12 month follow-up CT can be optionally performed. ACT 112: Negative or not required by law. Electronically signed by: Ramiro Ni M.D. 01/08/2024 12:51 PM ECG Additional Comments: Normal sinus rhythm with T wave inversions, no prior EKG Code Status & VTE Plan VTE Prophylaxis Plan VTE Prophylaxis will be ordered: Yes Supervising Physician Co-Signing Physician Notes Patient is a 48-year-old female with history of nephrolithiasis, mood disorder, hypertension, prediabetes, asthma and other medical problems presents with history of right upper quadrant/flank pain associated with dyspnea on exertion since 1 day duration. She reports associated nausea and vomiting yesterday. She denies any chest pain, shortness of breath at rest, dysuria, hematuria, constipation. Pain worsens with activity. Please review HPI for complete details of presentation. I personally reviewed blood work and imaging studies. Initial troponin is negative. EKG showed normal sinus rhythm, T wave inversions in anterolateral leads, low voltage QRS, prolonged QT. Imaging studies suggestive of left lower lobe pulmonary nodule, hepatic steatosis. Urinalysis not suggestive of UTI. Physical Exam: Vitals signs as noted above General Appearance: Obese, no apparent distress Head: normocephalic, Atraumatic Eyes: normal inspection, EOMI Neck: supple, Trachea midline Respiratory/Chest: Normal breath sounds, CTA, No accessory muscle use Cardiovascular: S1, S2, No murmur Abdomen/GI:Soft, RUQ/Flank tender, Bowel sounds present Extremities/Musculoskeletal:normal inspection, no edema Neurologic/Psych:AAOX3, grossly no focal neurological deficits Skin: normal color, warm Chest pain rule out ACS Abnormal EKG Pulmonary nodule--follow-up as outpatient Hepatic steatosis, obesity--needs lifestyle changes Right upper quadrant/flank pain--likely musculoskeletal Trend troponins, repeat EKG in the a.m., n.p.o. after midnight Check resting echo, lipid panel, start on aspirin Check drug screen, gallbladder ultrasound Muscle relaxants as needed I personally interviewed and examined at bedside. Patient's care is coordinated with Gomez NAJERA. I have reviewed the advanced practitioner's documentation, and I agree with plan of care. Please refer to the documentation above for details of patient's presentation and for discussion of other issues. I spent a total [id number] coordinating, documenting, and providing care for this patient excluding time spent in the performance of separately billed services.
[2024-01-08] MEDS ORDERED: ALBUTEROL 0.5% NEB SOLN 2.5 MG/0.5 ML VIAL NEB PRN (15:26)
--- NOTE | 2024-01-08 15:54 | XRay Report ---
XR ribs RT min 2V w [id number] CLINICAL HISTORY: ruq pain TECHNIQUE: 3 views of the right ribs were obtained. Single frontal view of the chest was obtained. Comparison: None available at the time of this dictation. FINDINGS: No acute fractures are seen. The chest wall and soft tissues are normal. No lines and tubes are seen. Cardiomegaly is noted. The lungs are clear. No evidence of pleural effus ion or pneumothorax. IMPRESSION: No evidence of acute fracture or other acute abnormalities in the visualized portions of the chest. ACT 112: Negative or not required by law. Electronically signed by: Ramiro Ni M.D. 01/08/2024 3:53 PM
--- NOTE | 2024-01-08 16:41 | Cardiology Consultation ---
Date of Consultation January 08, 2024 Assessment & Plan (1) Abnormal ECG: (2) Exertional dyspnea: (3) Atypical chest pain: (4) Chest pain at rest: Plan Chest pain. Atypical. Reproducible with palpation of the right anterolateral chest wall. History and physical examination highly suggestive of musculoskeletal etiology. Abnormal EKG. Diffuse T wave abnormality. No prior EKGs available for comparison. Refer for resting echocardiography (? LVH, infiltrative process). Check high-sensitivity troponin serially. NPO after midnight for now. Supervising Physician Co-Signing Physician Notes I have personally performed a history and physical examination on the patient. I have reviewed the advance practitioner's documentation, and I agree with, and take responsibility for the plan of care. 48-year-old female admitted with reproducible right-sided chest discomfort which is musculoskeletal in origin and reproducible with palpation. Incidentally noted abnormal ECG with diffuse T wave inversion. Will perform resting 2D transthoracic echocardiogram in a.m. for further evaluation. Further recommendations pending review of echo. Thank you for allow me to participate in the care of your patient. Vincent Mari DO, [facility] History of Present Illness Reason for Consultation: T wave inversion, dyspnea on exertion Requesting Physician: Gomez NAJERA Attending Physician: Bran Acuna MD History of Present Illness Awoke yesterday morning to get ready for work around 630. En route to the restroom she developed nausea and vomiting x1 attributed to severe sharp right lateral chest pain that radiated down the right side, into the right upper quadrant and into the right mid back Notes having a prior history of kidney stone with symptoms feeling somewhat similar though without change in urine, dysuria, or hematuria Discomfort persisted today for which she scheduled a video appointment with [facility], advised to report to the ER Discomfort is constant, waxing and waning, worse with movement, twisting, turning, walking, reproducible with minimal palpation of the chest wall - EKG revealed normal sinus rhythm at 74 bpm with low voltage QRS, diffuse T wave abnormality. No prior EKGs available for comparison (this was her first EKG ever) - High-sensitivity troponin less than 2.3 pg/mL - Imaging of the chest showed no acute abnormality - X-rays of the ribs negative for fracture or acute abnormality - Imaging of the abdomen and pelvis showed no acute infectious or inflammatory findings, gallbladder unremarkable. Incidental findings include hepatic Stata ptosis, 5 mm left lower lobe pulmonary nodule, scattered colonic diverticula, fat-containing umbilical hernia, heterogeneous mildly enlarged uterus, lobular suggesting fibroids + Dyspnea on exertion. No resting dyspnea. No tachypalpitations. No orthopnea, PND, or edema. No dizziness, near syncope, or syncope. No fevers or chills. No rash. No epistaxis, hemoptysis, melena, hematochezia, or hematuria. Denies prior cardiac history. She specifically denies history of CAD, AL, CHF, arrhythmia, heart murmur, rheumatic fever, or scarlet fever Past Medical and Surgical History Anxiety Depression Dyslipidemia Prediabetes Asthma Kidney stones status post shockwave lithotripsy Cervical dysplasia Tubal ligation Family History: Mother is alive without cardiac issues, with a history of breast cancer and diabetes. Father is alive without cardiac issues, history of thyroid disorder. Brother was born with heart trouble, details unknown Social History: Reformed smoker, quitting in 2020. No smokeless tobacco. No significant alcohol use. No illegal/illicit drug use. 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 Lives with her and stepson. Patient with 2 children, both without cardiac issues. Allergies Allergy/AdvReac Type Severity Reaction Status Date / Time Penicillins Allergy Intermediate Hives Verified 01/08/24 14:45 Home Medications Medication Instructions Recorded Confirmed Type albuterol sulfate 90 mcg/actuation 2 puff inhalation Q6H PRN chest 01/08/24 01/08/24 History aerosol inhaler tightness bupropion HCl 300 mg 24 hr tablet, 300 mg PO DAILY 01/08/24 01/08/24 History extended release (Wellbutrin XL) cetirizine 10 mg tablet 10 mg PO QAM 01/08/24 01/08/24 History escitalopram oxalate 10 mg tablet 10 mg PO DAILY 01/08/24 01/08/24 History escitalopram oxalate 20 mg tablet 20 mg PO DAILY 01/08/24 01/08/24 History fluticasone propionate 50 2 spray intranasal QAM 01/08/24 01/08/24 History mcg/actuation nasal spray,suspension metformin 500 mg tablet,extended 500 mg PO DAILY 01/08/24 01/08/24 History release 24 hr sumatriptan succinate 50 mg tablet 50 mg PO DIRECTED PRN Migraine 01/08/24 01/08/24 History Headache Patient History Social History Smoking Status: Former smoker Hx Alcohol Use: No Hx Substance Use: No Preferred Language: Emirati Communication Ability: Effective Manager Provider Relations Required: No Beliefs That Will Affect Care: None Current Living Situation: Spouse and Family Other Information That Helps Us Care for You: No Feels Safe at Home: Yes Safety Concerns: Feels Safe At This Time Assistive Devices: None Review of Systems Review of Systems: Complete Review of Systems: Constitutional: No fevers, chills, or night sweats. HEENT: Glasses. No amaurosis fugax. Pulmonary: Asthma. Denies history of sleep apnea. No history of PE. Cardiac: See above. GI/Abd: Occasional pill dysphagia. Occasional GERD. No melana or hematochezia. Kidney ston Fatty liver. No history of pancreatic issues. Vascular: No history of carotid artery disease, AAA, or lower extremity claudication/PAD. Hematologic: No coagulation disorder, anemia, or abnormal bleeding. Musculoskeletal: Arthritis. Skin: No rash. Neurologic: No history of TIA/CVA, or seizure disorder. Female : See above. Endocrine: Type II diabetes mellitus. Complete Review of Systems is as stated above, negative, or noncontributory Physical Exam Physical Exam: General: A&Ox3. NAD. HENT: Normocephalic. Atraumatic. Eyes: PER. Conjunctiva pink, sclera clear. Neck: No carotid bruits. No JVD. No HJR. Heart: RRR. Soft systolic murmur. No rub. No gallop. PMI is nondisplaced. Chest: Reproducible discomfort for minimal palpitation of the anterolateral chest wall. Lungs: Clear to auscultation. Abdomen: +BS. Soft. Nontender. No organomegaly. Extremities: No clubbing, cyanosis, or significant edema. Limited neurological examination is without focal deficits. Pulses: radial=2/4, posterior tibial=2/4. Results & Data Vital Signs (Past 12 Hours) Vital Signs Temp Pulse Pulse Resp BP BP Pulse Ox 01/08/24 15:43 90 01/08/24 14:39 76 16 128/82 98 01/08/24 14:00 77 19 124/76 96 01/08/24 13:30 75 14 137/88 95 01/08/24 13:00 77 15 123/84 96 01/08/24 11:30 73 19 150/81 H 96 01/08/24 11:01 142/75 H 01/08/24 10:30 71 15 142/100 H 94 01/08/24 10:00 73 15 124/83 95 01/08/24 09:45 72 30 H 120/68 94 01/08/24 09:35 75 01/08/24 09:17 74 16 113/60 92 01/08/24 08:33 36.6 C 88 16 123/77 98 O2 Del Method 01/08/24 15:43 01/08/24 14:39 01/08/24 14:00 01/08/24 13:30 01/08/24 13:00 01/08/24 11:30 01/08/24 11:01 01/08/24 10:30 01/08/24 10:00 01/08/24 09:45 01/08/24 09:35 01/08/24 09:17 Room Air 01/08/24 08:33 Room Air Laboratory Results Cardiac Enzymes 01/08/24 Range/Units 09:04 AST 12 L (13-39) U/L Troponin I High Sens < 2.3 (0-14) pg/ml CBC 01/08/24 Range/Units 09:04 WBC 6.60 (4.8-10.8) K/ul RBC 4.07 L (4.20-5.40) M/uL Hgb 12.3 (12.0-16.0) g/dl Hct 37.5 (37.0-47.0) % Plt Count 237 (130-400) K/uL Neut # (Auto) 4.21 (1.40-6.50) K/uL Lymph # (Auto) 1.77 (1.20-3.40) K/uL [place] # (Auto) 0.41 (0.11-0.59) K/uL Eos # (Auto) 0.13 (0.00-0.50) K/uL Baso # (Auto) 0.05 (0.00-0.20) K/uL Comprehensive Metabolic Panel 01/08/24 Range/Units 09:04 Sodium 138 (136-145) mmol/L Potassium 3.9 (3.5-5.1) mmol/L Chloride 103 (98-107) mmol/L Carbon Dioxide 29 (21-32) mmol/L BUN 14 (6-23) mg/dl Creatinine 0.80 (0.6-1.2) mg/dl Glucose 120 H (70-99(Fasting)) mg/dl Calcium 8.7 (8.6-10.3) mg/dl AST 12 L (13-39) U/L ALT 15 (7-52) U/L Alkaline Phosphatase 70 (34-104) U/L Total Protein 6.6 (6.0-8.3) gm/dl Albumin 3.9 (3.4-5.0) gm/dl Intake and Output 01/08/24 01/08/24 01/08/24 06:59 14:59 22:59 Intake Total 1000 / 1000 Balance 1000 / 1000 Intake: IV 1000 / 1000 Sodium Chloride 0.9% 1,000 ml @ 1000 / 1000 999 mls/hr IV .Q1H1M [facility] Rx#: [id number] Other: Weight 100 kg Weight Measurement Method Estimated by Patient Patient Weight 01/09/24 06:59 Weight 100 kg Diagnostic Findings Telemetry: Sinus at 74 bpm.
[2024-01-08] MEDS: ENOXAPARIN INJ 40 MG/0.4 ML SYR SQ SCH (16:51)
[2024-01-08] MEDS: ASPIRIN 81 MG ECTAB PO ONE (16:51)
[2024-01-08] MEDS ORDERED: GLUCAGON FOR INJ 1 MG VIAL SQ PRN (17:33)
[2024-01-08] MEDS ORDERED: CARBOHYDRATES FOR HYPOGLYCEMIA PO PRN (17:33)
[2024-01-08] MEDS ORDERED: DEXTROSE 50% 50 ML SYRINGE IV PRN (17:33)
[2024-01-08] MEDS ORDERED: GLUCOSE 10 TAB/TUBE PO PRN (17:33)
[2024-01-08] MEDS ORDERED: GLUCOSE 40% GEL 15 GM TUBE PO PRN (17:33)
[2024-01-08 20:43] LABS: Amphetamines+Metham, Urine Neg (Neg); Barbiturates, Urine Neg (Neg); Benzodiazepine, Urine Neg (Neg); Cocaine, Urine Neg (Neg); Fentanyl, Urine Neg (Neg); MDMA (Ecstacy), Urine Pos (Neg); Marijuana, Urine Neg (Neg); Methadone, Urine Neg (Neg); Opiate, Urine Neg (Neg); Phencyclidine, Urine Neg (Neg)
[2024-01-08] MEDS: INSULIN ASPART PER UNIT CHARGE SC SCH (20:50)
[2024-01-08] MEDS: METHOCARBAMOL 500 MG TABLET PO PRN (21:59)
--- NOTE | 2024-01-08 22:37 | Electrocardiogram Report ---
Test Reason : Blood Pressure : */* mmHG Vent. Rate : 74 BPM Atrial Rate : 74 BPM P-R Int : 148 ms QRS Dur : 82 ms QT Int : 422 ms P-R-T Axes : 38 14 -29 degrees QTcB Int : 468 ms Normal sinus rhythm Low voltage QRS T wave abnormality, consider anterior ischemia Abnormal ECG No previous ECGs available Confirmed by Cristino Thornton ([id number]) on 01/08/2024 10:37:34 PM Referred By: REFERRED SELF Confirmed By: Cristino Thornton
[2024-01-09] MEDS: MoRPHine SULFATE 2 MG/ML CARP IV PRN (02:10)
[2024-01-09 06:30] LABS: Basophils # (auto) 0.05 K/uL (0.00-0.20); Basophils % (auto) 0.7 %; Eosinophils # (auto) 0.19 K/uL (0.00-0.50); Eosinophils % (auto) 2.6 %; Hematocrit (blood only) 38.9 % (37.0-47.0); Hemoglobin 12.7 g/dl (12.0-16.0); Immature Granulocytes # (auto) 0.03 K/uL (0.01-0.20); Immature Granulocytes % (auto) 0.4 %; Lymphocytes % (auto) 34.3 %; Mean Corpuscular Hemoglobin 30.2 pg (25.0-34.0); Mean Corpuscular Hgb Conc 32.6 g/dL (32.0-36.0); Mean Corpuscular Volume 92.4 fL (80.0-100.0); Mean Platelet Volume 9.4 fL (9.4-12.4); Monocytes # (auto) 0.56 K/uL (0.11-0.59); Monocytes % (auto) 7.7 %; Neutrophils # (auto) 3.96 K/uL (1.40-6.50); Neutrophils % (auto) 54.3 %; Platelet Count 248 K/uL (130-400); RDW Coefficient of Variation 12.9 % (11.5-14.5); RDW Standard Deviation 43.7 fL (36.4-46.3); Red Blood Count 4.21 M/uL (4.20-5.40); White Blood Count 7.29 K/ul (4.8-10.8)
[2024-01-09 06:51] LABS: Albumin Globulin Ratio 1.5 (0.9-2); Albumin Level 4.1 gm/dl (3.4-5.0); BUN Creatinine Ratio 16.3 (10-20); Bilirubin,Total 0.3 mg/dl (0.2-1.0); Calcium 8.7 mg/dl (8.6-10.3); Chol HDL Ratio 5.2 (0-5); Creatinine Clr Calc Pharmacy 98.9 ml/min; Est GFR (Non-African American) 87.2 ml/min; Globulin 2.7 gm/dl (2.5-4.0); Magnesium 1.9 mg/dl (1.7-2.4); Potassium 4.1 mmol/L (3.5-5.1); Total Protein 6.8 gm/dl (6.0-8.3)
[2024-01-09 07:16] LABS: Estimated Average Glucose 111 mg/dl; Hemoglobin A1C 5.5 % (4.5-5.6)
--- NOTE | 2024-01-09 07:31 | Ultrasound Report ---
US gallbladder CLINICAL HISTORY: Right flank pain. COMPARISON STUDY: CT of the abdomen and pelvis January 08, 2024. FINDINGS: Hepatic echogenicity is diffusely increased. There is no biliary ductal dilatation. The gal lbladder is normal. There are no gallstones. The pancreas is unremarkable by sonography. There is no right hydronephrosis. IMPRESSION: 1. Hepatic steatosis. 2. No gallstones or biliary ductal dilatation. ACT 112: Negative or not required by law. Electronically signed by: Jozef Gregg M.D. 01/09/2024 7:29 AM
[2024-01-09] MEDS ORDERED: ASPIRIN 325 MG ECTAB PO SCH (09:00)
[2024-01-09] MEDS: ASPIRIN 81 MG ECTAB PO SCH (10:31)
[2024-01-09] MEDS: CETIRIZINE HCL 10 MG TABLET PO SCH (10:31)
[2024-01-09] MEDS: buPROPion XL 300 MG TABCR PO SCH (10:31)
[2024-01-09] MEDS: ESCITALOPRAM OXALATE 20 MG TAB PO SCH (10:32)
[2024-01-09] MEDS: ESCITALOPRAM OXALATE 10 MG TAB PO SCH (10:32)
[2024-01-09] MEDS: ACETAMINOPHEN 325 MG TAB PO SCH (10:49)
[2024-01-09] MEDS: DICLOFENAC SOD 1% GEL 100 GM TUBE EXT SCH (10:49)
--- NOTE | 2024-01-09 11:56 | Hospitalist Progress Note ---
Date of Service January 09, 2024 Assessment & Plan (1) Right upper quadrant pain: (2) Mood disorder: (3) Asthma: (4) HLD (hyperlipidemia): (5) Prediabetes: Plan 48-year-old lady with PMH of kidney stones, mood disorder, anxiety, depression, HLD, prediabetes, asthma presented to the ED with complaint of right-sided belly pain since waking up on Saturday morning at 6:30 AM. Patient reports 1 episode of throwing up associated with pain, reports no relief with Tylenol at home, reports 1 episode of shortness of breath prior to arrival. Patient denies recent febrile illness, denies any history of rheumatologic diseases, denies any trauma or fall, denies nausea or vomiting or acute changes in appetite habit prior to arrival, denies pain or burning while passing urine. She is being managed for the following: Rt abd painunclear etiology Patient coming in with right-sided abdominal pain for 1 day [employer], associated with 1 episode of vomiting and 1 episode of shortness of breath. Admitting CTAP: No renal stones or acute infectious or inflammatory findings. Hepatomegaly and hepatic steatosis noted, patient has been informed and discussed the importance of weight loss and GI follow-up as an outpatient. Lt Lung base w/ 5 mm pulmonary nodule noted, patient has been informed to follow-up CT scan in about 3 months time. Finding of uterine fibroids noted which also has been informed to the patient and requested that she follow-up with her gynecology as an outpatient. CTA chest with no evidence of PE. X-ray of right: No evidence of fracture or acute abnormalities. US gallbladder suggestive of hepatic steatosis, no evidence of gallstone or biliary ductal dilatation. LFT, UA WNL. test negative. Urine toxicology screen positive for MDMA, likely false positive result due to patient taking Wellbutrin. Will utilize scheduled Tylenol and diclofenac gel, as needed oxycodone and as needed morphine. added bowel regimen. Continue to follow. No clear cause of pain at this point. Likely musculoskeletal pain. Such as been explained to the patient in detail. Abnormal EKG: EKG shows T wave inversions, no chest pain, negative troponin. Troponin x 3 negative,Echo with EF of 60 to 65%, no regional wall motion abnormality. Ventricular systolic function WNL. Cardiology evaluating for chest pain rule out. Resume diet after cardio eval. DOEHx asthma: Use albuterol inhaler as needed at home CT chest negative for PE or acute findings As needed nebs for SOB/wheezing Pt reports resolution of her sob. Hx of mood disorder: Continue Lexapro/Wellbutrin, monitor QTc Hx prediabetes: Hold metformin while inpatient, recheck A1c - 5.5. SSI. Left lung nodule: CT showed 5 mm pulmonary nodule, follow-up outpatient3-month follow-up chest CT recommended Full code DVT prophylaxis: Lovenox Admission and Anticipated Discharge Date Admission Date: January 08, 2024 Subjective Patient was seen and examined at bedside. Patient's report of right-sided flank pain is about the same/minimal improvement. Patient reports significant improvement with pain medication and then wears off. Patient denies any recent trauma or fall. Patient denies any pain or burning while passing urine. Patient did report 1 episode of shortness of breath with exertion prior to arrival but has not had any further episodes of shortness of breath. Patient denies any nausea or vomiting, reports eating okay. Reports moving bowels 2 days ago, usual habit is daily. Labs and all the imagings done so far has been discussed in detail with patient at bedside. She voiced understanding. Physical Exam Physical Exam: Constitutional: WD/WN, vitals as a meño Eyes: PERRL, conjunctiva e normal, anicteri c sclerae ENMT: external ear and n ose normal, oropha rynx normal Neck: trachea midline, n o thyromegaly Respiratory: normal respiratory effort, lungs german[place] ar to auscultation , no wheezing Cardiovascular: RRR, no murmur, no edema Gastrointestinal ( Abdomen): normal bowel sound s, soft, nontender , no hepatosplenom egaly Inspection/ Auscultation: norm al bowel sounds P ercussion/Palpatio n: + abdomen tende r x right abdomen; no guarding Musculoskeletal: no cyanosis or clu bbing, extremities motor strength 5/ 5 Skin: no rashes, warm an d dry Neurologic: patellar DTR's 2+ bilat, sensation i ntact and PERRL, E CANDIDA, accommodation nl, no face palsy , no dysarthria Psychiatric: A+Ox3, euthymic af fect Lymphatic: no cervical or axi llary lymphadenopa thy Results & Data Results & Data Vital Signs (Past 12 Hours) Vital Signs Temp Pulse Pulse Resp BP Pulse Ox O2 Del Method 01/09/24 07:39 36.6 C 70 18 163/75 H 96 Room Air 01/09/24 07:20 88 01/09/24 03:01 36.5 C 77 16 118/77 96 Room Air
--- NOTE | 2024-01-09 11:59 | Cardiology Progress Note ---
Date of Service January 09, 2024 Assessment & Plan (1) Abnormal ECG: (2) Exertional dyspnea: (3) Atypical chest pain: (4) Chest pain at rest: Plan Chest pain. Atypical. Reproducible with palpation of the right anterolateral chest wall. Musculoskeletal etiology. Abnormal EKG. Diffuse T wave abnormality. No prior EKGs available for comparison. Incidental finding. TTE with borderline concentric LVH. Dyslipidemia. Lipid panel performed on January 09, 2024 demonstrated the following: Total cholesterol 235. LDL 157. HDL 45. Triglycerides 163. LFTs normal with an AST of 12, ALT 15, alk phos 62, total bilirubin 0.3 Recommendations: OK to feed from a cardiac standpoint Continue ASA 81 mg/day Add Losartan 12.5 mg/day for BP Add Atorvastatin 40 mg/day for dyslipidemia Outpatient stress testing, RE: Abnormal EKG, risk factors Admission and Anticipated Discharge Date Admission Date: January 08, 2024 Supervising Physician Co-Signing Physician Notes I have personally performed a history and physical examination on the patient. I have reviewed the advance practitioner's documentation, and I agree with, and take responsibility for the plan of care. 48-year-old female admitted with reproducible right-sided chest discomfort which is musculoskeletal in origin and reproducible with palpation. Incidentally noted abnormal ECG with diffuse T wave inversion. Resting echocardiogram demonstrates preserved LV systolic function without regional wall motion abnormality. Recommend outpatient stress testing when musculoskeletal right sided chest discomfort has resolved. Continue low-dose aspirin with addition of losartan and atorvastatin as noted above. Vincent Mari DO, [facility] Subjective Patient seen and examined. Chart, medications, telemetry reviewed. Ongoing right lateral chest wall pain with certain movements. Seems more comfortable today. Telemetry: Sinus rhythm in the 70s. January 09, 2024 TTE ([facility], Dr. Mari): Normal LV systolic function. EF 60 to 65%. Borderline concentric LVH. Normal LV relaxation. Mild mitral and tr icuspid regurgitation. Doppler findings do not suggest pulmonary hypertension. Review of Systems Review of Systems: Complete Review of Systems: Constitutional: No fevers, chills, or night sweats. HEENT: Glasses. No amaurosis fugax. Pulmonary: Asthma. Denies history of sleep apnea. No history of PE. Cardiac: See above. GI/Abd: Occasional pill dysphagia. Occasional GERD. No melana or hematochezia. Kidney ston Fatty liver. No history of pancreatic issues. Vascular: No history of carotid artery disease, AAA, or lower extremity claudication/PAD. Hematologic: No coagulation disorder, anemia, or abnormal bleeding. Musculoskeletal: Arthritis. Skin: No rash. Neurologic: No history of TIA/CVA, or seizure disorder. Female : See above. Endocrine: Type II diabetes mellitus. Complete Review of Systems is as stated above, negative, or noncontributory Physical Exam Physical Exam: General: A&Ox3. NAD. HENT: Normocephalic. Atraumatic. Eyes: PER. Conjunctiva pink, sclera clear. Neck: No carotid bruits. No JVD. Heart: RRR. Soft systolic murmur. No rub. No gallop. PMI is nondisplaced. Chest: Reproducible discomfort for minimal palpitation of the anterolateral chest wall. Lungs: Clear to auscultation. Abdomen: +BS. Soft. Nontender. No organomegaly. Extremities: No clubbing, cyanosis, or significant edema. Limited neurological examination is without focal deficits. Pulses: Posterior tibial=2/4. Results & Data Vital Signs (Past 12 Hours) Vital Signs Temp Pulse Pulse Resp BP Pulse Ox O2 Del Method 01/09/24 11:50 36.7 C 73 18 146/72 H 91 Room Air 01/09/24 07:39 36.6 C 70 18 163/75 H 96 Room Air 01/09/24 07:20 88 01/09/24 03:01 36.5 C 77 16 118/77 96 Room Air Laboratory Results Cardiac Enzymes 01/08/24 01/08/24 01/08/24 Range/Units 09:04 15:52 21:19 AST (13-39) U/L Troponin I High Sens < 2.3 3.7 2.6 (0-14) pg/ml 01/09/24 Range/Units 05:53 AST 12 L (13-39) U/L Troponin I High Sens (0-14) pg/ml Lipids 01/09/24 Range/Units 05:53 Triglycerides 163 H (0-150) mg/dl Cholesterol 235 H (0-200) mg/dl HDL Cholesterol 45 mg/dl Cholesterol/HDL Ratio 5.2 H (0-5) CBC 01/09/24 Range/Units 05:53 WBC 7.29 (4.8-10.8) K/ul RBC 4.21 (4.20-5.40) M/uL Hgb 12.7 (12.0-16.0) g/dl Hct 38.9 (37.0-47.0) % Plt Count 248 (130-400) K/uL Neut # (Auto) 3.96 (1.40-6.50) K/uL Lymph # (Auto) 2.50 (1.20-3.40) K/uL [place] # (Auto) 0.56 (0.11-0.59) K/uL Eos # (Auto) 0.19 (0.00-0.50) K/uL Baso # (Auto) 0.05 (0.00-0.20) K/uL Comprehensive Metabolic Panel 01/09/24 Range/Units 05:53 Sodium 138 (136-145) mmol/L Potassium 4.1 (3.5-5.1) mmol/L Chloride 102 (98-107) mmol/L Carbon Dioxide 31 (21-32) mmol/L BUN 13 (6-23) mg/dl Creatinine 0.80 (0.6-1.2) mg/dl Glucose 91 (70-99(Fasting)) mg/dl Calcium 8.7 (8.6-10.3) mg/dl AST 12 L (13-39) U/L ALT 15 (7-52) U/L Alkaline Phosphatase 62 (34-104) U/L Total Protein 6.8 (6.0-8.3) gm/dl Albumin 4.1 (3.4-5.0) gm/dl Intake and Output 01/08/24 01/09/24 01/09/24 22:59 06:59 14:59 Intake Total 240 / 1240 Balance 240 / 1240 Intake: Oral 240 / 240 Other: Other Intake Source npo Weight 100 kg
[2024-01-09] MEDS: FLUTICASONE PROPIONATE NA SPR 16 GM BTL SCH (12:21)
[2024-01-09] MEDS: DOCUSATE SODIUM 100 MG CAP PO SCH (13:22)
[2024-01-09] MEDS: LOSARTAN POTASSIUM 25 MG TAB PO SCH (13:23)
[2024-01-09] MEDS: ATORVASTATIN 40 MG TAB PO SCH (13:23)
[2024-01-09] MEDS: oxyCODONE HCL IR 5 MG TAB (IMMEDIATE RELEASE) PO PRN (14:43)
--- NOTE | 2024-01-10 06:08 | Electrocardiogram Report ---
Test Reason : Blood Pressure : */* mmHG Vent. Rate : 77 BPM Atrial Rate : 77 BPM P-R Int : 154 ms QRS Dur : 82 ms QT Int : 410 ms P-R-T Axes : 44 9 -21 degrees QTcB Int : 463 ms Normal sinus rhythm Low voltage QRS Abnormal ECG When compared with ECG of 08-Jan-2024 11:59, No significant change was found Confirmed by Cristino Thornton ([id number]) on 01/10/2024 6:08:25 AM Referred By: REFERRED SELF Confirmed By: Cristino Thornton
[2024-01-10 08:38] LABS: Basophils # (auto) 0.04 K/uL (0.00-0.20); Basophils % (auto) 0.6 %; Eosinophils % (auto) 3.1 %; Hemoglobin 12.9 g/dl (12.0-16.0); Immature Granulocytes # (auto) 0.02 K/uL (0.01-0.20); Immature Granulocytes % (auto) 0.3 %; Lymphocytes # (auto) 1.62 K/uL (1.20-3.40); Lymphocytes % (auto) 25.3 %; Mean Corpuscular Hemoglobin 30.4 pg (25.0-34.0); Mean Corpuscular Hgb Conc 33.1 g/dL (32.0-36.0); Mean Corpuscular Volume 91.8 fL (80.0-100.0); Mean Platelet Volume 9.4 fL (9.4-12.4); Monocytes # (auto) 0.58 K/uL (0.11-0.59); Monocytes % (auto) 9.1 %; Neutrophils # (auto) 3.94 K/uL (1.40-6.50); Neutrophils % (auto) 61.6 %; Platelet Count 225 K/uL (130-400); RDW Coefficient of Variation 12.8 % (11.5-14.5); RDW Standard Deviation 42.7 fL (36.4-46.3); Red Blood Count 4.25 M/uL (4.20-5.40)
[2024-01-10 09:31] VITALS: O2SAT 95
[2024-01-10 09:41] LABS: Albumin Globulin Ratio 1.5 (0.9-2); BUN Creatinine Ratio 16.9 (10-20); Bilirubin,Total 0.5 mg/dl (0.2-1.0); Calcium 8.9 mg/dl (8.6-10.3); Creatinine Clr Calc Pharmacy 103.8 ml/min; Est GFR (African American) 105.8 ml/min; Est GFR (Non-African American) 91.3 ml/min; Globulin 2.6 gm/dl (2.5-4.0); Phosphorus 3.8 mg/dl (2.5-4.9); Potassium 4.2 mmol/L (3.5-5.1); Total Protein 6.6 gm/dl (6.0-8.3)
[2024-01-10] MEDS: GADOBUTROL 30ML VIAL IV ONE (13:15)
--- NOTE | 2024-01-10 13:34 | Magnetic Resonance Report ---
MRI OF THE THORACIC SPINE WITH AND WITHOUT CONTRAST CLINICAL HISTORY: Back pain. Evaluate for tumor or stenosis. COMPARISON: Chest CT January 08, 2024. TECHNIQUE: Utilizing a 1.5 Lolis magnet and dedicated coil, multiplanar, multiecho imaging of the th oracic spine was performed before and after the intravenous administration of 10 cc. FINDINGS: Alignment of the thoracic spine is anatomic. Vertebral body heights are maintained. No romina ow edema or replacement is present. Additional thoracic spine fracture. Thoracic cord signal and darleen missy are normal. No intracanalicular mass, fluid collection or abnormal enhancement within the thoraci c canal is present. Disc spaces are preserved. Mild discogenic changes are noted at several levels. T here are no disc herniations. The central canal and neural foramen are patent. Paravertebral soft tis sues are unremarkable. IMPRESSION: 1. Unremarkable MRI of the thoracic spine. 2. No thoracic spine fractures. 3. No disc herniations. Patent central canal and neural foramen. 4. Normal thoracic cord signal and caliber. ACT 112: Negative or not required by law. Electronically signed by: Jozef Gregg M.D. 01/10/2024 1:32 PM
[2024-01-10] MEDS: KETOROLAC TROMETHAMINE 15 MG/ML VIAL IV PRN (13:40)
--- NOTE | 2024-01-10 13:50 | Pain Management Consultation ---
Date of Consultation January 10, 2024 Assessment & Plan (1) Atypical chest pain: (2) Acute right flank pain: (3) Lumbago: Back pain laterality: bilateral Chronicity: acute Sciatica presence: without sciatica Qualified Code(s): M54.50 - Low back pain, unspecified Plan 1. Patient's pain presentation appears be musculoskeletal in nature based on extensive diagnostic workup completed upon this admission. Lumbar spine MRI is pending at time of dictation. There appears to be no obvious radicular pattern to her pain. We have nothing interventional to offer the patient at this time, but would consider outpatient evaluation with any persistent complaints. Would recommend conservative management with NSAIDs/steroids. Will initiate Medrol Dosepak. 2. As needed utilization of opiates upon this admission is appropriate but do not suspect any need for opiate use upon discharge 3. Patient was encouraged to trial Toradol 15 mg IV as written for as needed pain instead of opiates. Potentially consider discharge with short course of anti-inflammatories such as diclofenac 75 mg twice daily x 14 days. 4. Consider lidocaine patch applied to lumbosacral region 5. Pain service will sign off on patient at this time. Discharge planning per hospitalist team. Thank you for allowing us to participate in the care of Mrs. Jarvis. History of Present Illness Reason for Consultation: Right-sided flank region pain Requesting Physician: Sean Iraheta MD Attending Physician: Sean Iraheta MD History of Present Illness Mrs. Jarvis is a morbidly obese 48-year-old white female who was admitted on 01/08/2024 with complaints of right-sided flank region pain which reportedly began the day prior upon awakening. Patient has past medical history significant for kidney stones, mood disorder, anxiety, depression, hyperlipidemia, prediabetes, obesity and asthma. She reportedly awoke on 01/06/2025 with pain in the right flank which persisted which led to emergent evaluation. She denies known injury. She did report an episode of emesis possibly related to her pain complaints. She describes the pain as aching and sharp in the right flank and lateral lower chest wall without radiation. She reports slight increase with deep breathing and movement. She denies increased pain with bowel movements or walking. She is reporting new onset axial low back pain over the past 24 hours without known injury. This pain is localized to the axial low back without radiation. She denies relationship with the right flank region pain in location or timing. Patient has been out of bed to the bathroom multiple times today with minimal increase in pain. She reports her pain is improved in the right flank today compared to the past few days. She denies any known rash. She denies any lumbar radicular pattern to her pain complaints. She is rating her current pain a 9/10 although is sitting comfortably in the room having conversation without limitation able to move around in the bed. Her pain ranges between a 3-9/10. Patient denies bowel/bladder incontinence or saddle anesthesia. She denies fevers, chills or night sweats. Patient has no prior history of similar pain. Patient has no further constitutional complaints. Plan of care discussed with Dr. Amber Rosa. Pain Assessment Full Body Front + Back: 2 1. Right flank/lower posterior lateral chest wall 2. Axial lower lumbar/lumbosacral spine Pain scale - at its best (0-10): 3 Pain scale - at its worst (0-10): 9 Allergies Allergy/AdvReac Type Severity Reaction Status Date / Time Penicillins Allergy Intermediate Hives Verified 01/08/24 14:45 Home Medications Medication Instructions Recorded Confirmed Type albuterol sulfate 90 mcg/actuation 2 puff inhalation Q6H PRN chest 01/08/24 01/08/24 History aerosol inhaler tightness bupropion HCl 300 mg 24 hr tablet, 300 mg PO DAILY 01/08/24 01/08/24 History extended release (Wellbutrin XL) cetirizine 10 mg tablet 10 mg PO QAM 01/08/24 01/08/24 History escitalopram oxalate 10 mg tablet 10 mg PO DAILY 01/08/24 01/08/24 History escitalopram oxalate 20 mg tablet 20 mg PO DAILY 01/08/24 01/08/24 History fluticasone propionate 50 2 spray intranasal QAM 01/08/24 01/08/24 History mcg/actuation nasal spray,suspension metformin 500 mg tablet,extended 500 mg PO DAILY 01/08/24 01/08/24 History release 24 hr sumatriptan succinate 50 mg tablet 50 mg PO DIRECTED PRN Migraine 01/08/24 01/08/24 History Headache Pain History Pain Intensity Pain scale - at its best (0-10): 3 Pain scale - at its worst (0-10): 9 Patient History Social History Smoking Status: Former smoker Hx Alcohol Use: No Hx Substance Use: No Preferred Language: Belgian Communication Ability: Effective Sales Service Rep Required: No Beliefs That Will Affect Care: None Current Living Situation: Spouse and Family Other Information That Helps Us Care for You: No Feels Safe at Home: Yes Safety Concerns: Feels Safe At This Time Assistive Devices: None Physical Exam 2 Physical Exam: General: Patient sitting quietly in exam room in no acute distress. Speech and thought process appropriate. Mood and affect appropriate. Cognition intact. Patient morbidly obese and physically deconditioned. Head: Normocephalic and atraumatic. ENT: No evidence of nasal or oral mucosal lesions. Mucous membranes are moist. Poor dentition is noted. Eyes: Pupils equal round reactive to light. Neck: Supple without adenopathy and full range of motion. Chest: Nontender to palpation of the costosternal junction. Patient is tender along the posterior lateral lower chest wall involving the rib intercostal space. Approximately the level of T10-11 location extending from the posterior axillary line through the anterior axillary line. Patient is minimally tender with lateral compression. Nontender with AP compression. Abdomen: Soft and nondistended. No organomegaly. Bowel sounds active. No rebound or guarding. Back/spine: Patient has loss of lumbar lordosis. She is generally tender over the lumbosacral junction with slight hyperalgesia. No focal midline, facet joint or SI joint tenderness to provocative testing. Lower extremities: SLR negative bilaterally. Strength testing 5/5 and equal. Sensation intact without deficit. Slight increase in axial lumbosacral pain with resisted hip flexion and extension on the right. Neurologic: Cranial nerves grossly intact. Ambulatory function not witnessed. Results (Pain Clinic) Diagnostic Review MRI Findings: [facility], [place] [phone] Magnetic Resonance Report Patient: STEF JARVIS Admit Date: 01/08/24 MR#: [id number] Address1: [address] [facility] Acct ID:[id number] Address2: Date: 1975 [facility] Zip: [place] [address] Age: 48 Location: 2W Sex: F Room/Bed: W256-2 Att Phy: Sean Iraheta MD Diagnosis: JOHNSTON, R FLANK PAIN Gabriella Phy: Karin Porter MD Service Date: 01/10/24 Fam Phy: Interpreting Phy: Jozef Gregg [facility] Phy: Bran Acuna MD Ordering Phy: Sean Iraheta MD cc: ~ MRI OF THE THORACIC SPINE WITH AND WITHOUT CONTRAST CLINICAL HISTORY: Back pain. Evaluate for tumor or stenosis. COMPARISON: Chest CT January 08, 2024. TECHNIQUE: Utilizing a 1.5 Lolis magnet and dedicated coil, multiplanar, multiecho imaging of the thoracic spine was performed before and after the intravenous administration of 10 cc. FINDINGS: Alignment of the thoracic spine is anatomic. Vertebral body heights are maintained. No marrow edema or replacement is present. Additional thoracic spine fracture. Thoracic cord signal and caliber are normal. No intracanalicular mass, fluid collection or abnormal enhancement within the thoracic canal is present. Disc spaces are preserved. Mild discogenic changes are noted at several levels. There are no disc herniations. The central canal and neural foramen are patent. Paravertebral soft tissues are unremarkable. IMPRESSION: 1. Unremarkable MRI of the thoracic spine. 2. No thoracic spine fractures. 3. No disc herniations. Patent central canal and neural foramen. 4. Normal thoracic cord signal and caliber. ACT 112: Negative or not required by law. Electronically signed by: Jozef Gregg M.D. 01/10/2024 1:32 PM Dictated: 01/10/24 1327 Transcribed: 01/10/24 1327 Lumbar MRI was not read at time of dictation. CT Findings: [place], [place] [phone] CT Scan Report Patient: STEF JARVIS Admit Date: 01/08/24 MR#: [id number] Address1: [address] [facility] Acct ID:[id number] Address2: Date: 1975 [facility] Zip: [place] [address] Age: 48 Location: ED Sex: F Room/Bed: Att Phy: Diagnosis: R SIDED ABD PAIN Gabriella Phy: Karin Porter MD Service Date: 01/08/24 [facility] Phy: Interpreting Phy: Ramiro Ni [facility] Phy: Ordering Phy: Carlos Rich PA-C cc: ~ CT angio chest PE protocol CLINICAL HISTORY: R flank pain TECHNIQUE: Multidetector row helical CT of the chest was performed with angiographic protocol. Coronal and sagittal reformations were obtained. Coronal and sagittal MIPS were obtained from the axial data set and were submitted for review. Automated dose lowering techniques and/or adjustment according to patient size were utilized for this exam. CT DOSE: 845.24 mGy.cm Comparison: None available at the time of this dictation. FINDINGS: Lungs and pleura: There is a 5 mm nodule of the left lung base (series 4 image 169). Heart and pericardium: Heart size is normal. No pericardial effusion. Vessels: Evaluation for pulmonary embolism is limited due to suboptimal contrast timing. No evidence of central, lobar, or segmental embolus. Mediastinum and nancy: Unremarkable. Chest wall and lower neck: Unremarkable. Abdomen: For findings below the diaphragm, please refer to CT of the abdomen dated the same. Bones: Mild degenerative changes are seen. IMPRESSION: 1. No acute abnormality and in particular no evidence of pulmonary embolus. 2. Small pulmonary nodule is in the left lower lobe. According to Fleischner criteria, no follow-up is required in low risk patients, in high-risk patients, a 12 month follow-up CT can be optionally performed. ACT 112: Negative or not required by law. Electronically signed by: Ramiro Ni M.D. 01/08/2024 12:51 PM Dictated: 01/08/24 1248 Transcribed: 01/08/24 1248 [place], [place] [phone] CT Scan Report Patient: STEF JARVIS Admit Date: 01/08/24 MR#: [id number] Address1: [address] [facility] Acct ID:[id number] Address2: Date: 1975 [facility] Zip: [place] [address] Age: 48 Location: ED Sex: F Room/Bed: Att Phy: Diagnosis: R SIDED ABD PAIN Gabriella Phy: Karin Porter MD Service Date: 01/08/24 Fam Phy: Interpreting Phy: Yeyo Celis MDAdmit Phy: Ordering Phy: Carlos Rich PA-C cc: ~ CT SCAN OF THE ABDOMEN AND PELVIS WITHOUT IV CONTRAST CLINICAL HISTORY: Right flank pain. COMPARISON STUDY: No priors. TECHNIQUE: CT scan of the abdomen and pelvis is performed from the lung bases to the proximal femora. Images are reviewed in the axial, sagittal, and coronal planes. IV contrast was not administered for this examination. A dose lowering technique was utilized adhering to the principles of ALARA. CT DOSE: 1452.68 mGy.cm FINDINGS: Lung bases: The heart is normal in size and without pericardial effusion. There is a 5 mm left lower lobe pulmonary nodule seen on image #16. The lung bases are otherwise clear. Liver: The unenhanced liver is enlarged, measuring 18.7 cm in length. Attenuation is diffusely diminished indicating steatosis. Fatty sparing is seen adjacent to the gallbladder fossa. There is no intrahepatic biliary ductal dilatation. Gallbladder: Unremarkable. Spleen: Normal in size and attenuation. Pancreas: Unremarkable. Adrenal glands: Unremarkable. Kidneys: The unenhanced kidneys are normal in size and without hydronephrosis. No renal calculi are identified and there is no ureteral stone. There is no evidence of contour deforming renal mass lesion. Abdominal vasculature: The abdominal aorta is normal in course and caliber. Bowel: There are scattered colonic diverticula without CT evidence of acute diverticulitis. No bowel obstruction is seen. The appendix is well-visualized and normal. Peritoneum: There is no intraperitoneal free air or abdominal ascites. There is a fat-containing umbilical hernia. Lymphadenopathy: None. Pelvic viscera: The bladder is normal as visualized. The uterus is mildly enlarged, heterogeneous, lobular suggesting fibroids. No adnexal lesion is seen. Skeletal structures: No lytic or blastic lesions are seen. Sclerotic change is noted in the sacroiliac joints. IMPRESSION: 1. No acute infectious or inflammatory findings are identified in the abdomen or pelvis. 2. Hepatomegaly and hepatic steatosis. 3. A 5 mm pulmonary nodule is seen at the left lung base. This is not highly suspicious, and a 3-month follow-up chest CT is recommended for reassessment and full evaluation of the thorax. 4. The appearance of the uterus suggests fibroids. 5. Additional findings as above. ACT 112: Negative or not required by law. Electronically signed by: Yeyo Celis M.D. 01/08/2024 11:28 AM Dictated: 01/08/24 1032 Transcribed: 01/08/24 1036 Radiology Findings: [facility], [place] [phone] XRay Report Patient: STEF JARVIS Admit Date: 01/08/24 MR#: [id number] Address1: [address] [facility] Acct ID:[id number] Address2: Date: 1975 [facility] Zip: [place] [address] Age: 48 Location: 2W Sex: F Room/Bed: [facility] Att Phy: Bran Acuna MD Diagnosis: JOHNSTON, R FLANK PAIN Gabriella Phy: Karin Porter MD Service Date: 01/08/24 Fam Phy: Interpreting Phy: Ramiro Ni MDAdmit Phy: Bran Acuna MD Ordering Phy: Gomez Salinas CRNP cc: ~ XR ribs RT min 2V w [id number] CLINICAL HISTORY: ruq pain TECHNIQUE: 3 views of the right ribs were obtained. Single frontal view of the chest was obtained. Comparison: None available at the time of this dictation. FINDINGS: No acute fractures are seen. The chest wall and soft tissues are normal. No lines and tubes are seen. Cardiomegaly is noted. The lungs are clear. No evidence of pleural effusion or pneumothorax. IMPRESSION: No evidence of acute fracture or other acute abnormalities in the visualized portions of the chest. ACT 112: Negative or not required by law. Electronically signed by: Ramiro Ni M.D. 01/08/2024 3:53 PM Dictated: 01/08/24 155 Transcribed: 01/08/24 155
--- NOTE | 2024-01-10 13:58 | Magnetic Resonance Report ---
MR lumbar spine wo/w con CLINICAL HISTORY: back pain, ro tumor/stenosis TECHNIQUE: 3 plane localizer images, sagittal T2, sagittal T1, sagittal STIR, axial T1, axial T2 oliver g with postcontrast axial T1 and sagittal T1 fat-saturated sequences were obtained of the lumbar spin e, before and after intravenous administration of 12 mL of MultiHance. Comparison: Comparison is made to CT abdomen pelvis 01/08/2024 FINDINGS: The alignment is anatomical. L1-L2: No significant abnormality. L2-L3: Broad-based posterior disc bulge is seen without significant canal or neuroforaminal stenosis. L3-L4: Broad-based posterior disc bulge is seen with mild bilateral neural foraminal stenosis. L4-L5: Facet arthropathy is seen with mild bilateral neural foraminal stenosis. L5-S1: Facet arthropathy is seen with mild bilateral neural foraminal stenosis The spinal ligaments are intact, without evidence of disruption or abnormal signal intensity. The spi nal cord is normal in signal intensity and there is no evidence of cord contusion. There is no eviden ce of an extradural, intradural, extramedullary or intramedullary lesion. Mild edema in the soft tiss ues is noted. IMPRESSION: There is mild bilateral neuroforaminal stenosis but no mass lesion or other acute abnormality. ACT 112: Negative or not required by law. Electronically signed by: Ramiro Ni M.D. 01/10/2024 1:56 PM
[2024-01-10] MEDS ORDERED: methylPREDNISolone 4 MG TAB, 6 DAY TAPER PO SCH (14:00)
--- NOTE | 2024-01-10 14:30 | Hospitalist Progress Note ---
Date of Service January 10, 2024 Assessment & Plan (1) Right upper quadrant pain: (2) Mood disorder: (3) Asthma: (4) HLD (hyperlipidemia): (5) Prediabetes: Plan 48-year-old lady with PMH of kidney stones, mood disorder, anxiety, depression, HLD, prediabetes, asthma presented to the ED with complaint of right-sided belly pain since waking up on Saturday morning at 6:30 AM. Patient reports 1 episode of throwing up associated with pain, reports no relief with Tylenol at home, reports 1 episode of shortness of breath prior to arrival. Patient denies recent febrile illness, denies any history of rheumatologic diseases, denies any trauma or fall, denies nausea or vomiting or acute changes in appetite habit prior to arrival, denies pain or burning while passing urine. 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 Admitting CTAP: No renal stones or acute infectious or inflammatory findings. Hepatomegaly and hepatic steatosis noted, patient has been informed and discussed the importance of weight loss and GI follow-up as an outpatient. Lt Lung base w/ 5 mm pulmonary nodule noted, patient has been informed to follow-up CT scan in about 3 months time. Finding of uterine fibroids noted which also has been informed to the patient and requested that she follow-up with her gynecology as an outpatient. CTA chest with no evidence of PE. X-ray of right: No evidence of fracture or acute abnormalities. US gallbladder suggestive of hepatic steatosis, no evidence of gallstone or biliary ductal dilatation. MRI T and L spine w/ no acute abn. LFT, UA WNL. test negative. Urine toxicology screen positive for MDMA, likely false positive result due to patient taking Wellbutrin. Will utilize scheduled Tylenol and diclofenac gel, as needed iv ketorolac, oxyco done and as needed morphine. c/w bowel regimen. Continue to follow. No clear cause of pain at this point. Likely musculoskeletal pain. Such as been explained to the patient and her in detail. Pain Mx evaled, appreciate recs. lidocaine patch and medrol dose pack added. f/u pain mx on dc if persisting pain. Abnormal EKG: EKG shows T wave inversions, no chest pain, negative troponin. Troponin x 3 negative,Echo with EF of 60 to 65%, no regional wall motion abnormality. Ventricular systolic function WNL. Cardiology evaluated for chest pain rule out. f/u cardio on dc, op stress test . DOEHx asthma: Use albuterol inhaler as needed at home CT chest negative for PE or acute findings As needed nebs for SOB/wheezing Pt reports resolution of her sob. Hx of mood disorder: Continue Lexapro/Wellbutrin, monitor QTc Hx prediabetes: Hold metformin while inpatient, recheck A1c - 5.5. SSI. Left lung nodule: CT showed 5 mm pulmonary nodule, follow-up outpatient3-month follow-up chest CT recommended Full code DVT prophylaxis: Lovenox Admission and Anticipated Discharge Date Admission Date: January 08, 2024 Subjective Patient was seen and examined at bedside. Patient's report of right-sided flank pain is about the same/no improvement. Patient reports significant improvement with pain medication and then wears off. will get mri t ans L spine. will consult pain mx. Labs and all the imagings done so far has been discussed in detail with patient at bedside and pt's over the phone at bedside. They voiced understanding. Physical Exam Physical Exam: Constitutional: WD/WN, vitals as a meño Eyes: PERRL, conjunctiva e normal, anicteri c sclerae ENMT: external ear and n ose normal, oropha rynx normal Neck: trachea midline, n o thyromegaly Respiratory: normal respiratory effort, lungs germania ar to auscultation , no wheezing Cardiovascular: RRR, no murmur, no edema Gastrointestinal ( Abdomen): normal bowel sound s, soft, nontender , no hepatosplenom egaly Inspection/ Auscultation: norm al bowel sounds P ercussion/Palpatio n: + abdomen tende r x right abdomen; no guarding Musculoskeletal: no cyanosis or clu bbing, extremities motor strength 5/ 5 Skin: no rashes, warm an d dry Neurologic: patellar DTR's 2+ bilat, sensation i ntact and PERRL, E CANDIDA, accommodation nl, no face palsy , no dysarthria Psychiatric: A+Ox3, euthymic af fect Lymphatic: no cervical or axi llary lymphadenopa thy Results & Data Results & Data Vital Signs (Past 12 Hours) Vital Signs Temp Pulse Pulse Resp BP Pulse Ox O2 Del Method 01/10/24 10:19 65 01/10/24 09:30 36.7 C 73 17 118/74 95 Room Air 01/10/24 04:00 36.5 C 69 18 125/84 96 Room Air
[2024-01-10] MEDS: methylPREDNISolone 4 MG TAB PO SCH ×2 (15:49→17:48)
[2024-01-10] MEDS: LIDOCAINE 5% 1 PATCH TD SCH (15:50)
[2024-01-11 07:30] LABS: Basophils # (auto) 0.02 K/uL (0.00-0.20); Basophils % (auto) 0.2 %; Hematocrit (blood only) 39.7 % (37.0-47.0); Hemoglobin 13.1 g/dl (12.0-16.0); Immature Granulocytes # (auto) 0.06 K/uL (0.01-0.20); Immature Granulocytes % (auto) 0.5 %; Lymphocytes # (auto) 1.03 K/uL (1.20-3.40); Lymphocytes % (auto) 9.2 %; Mean Corpuscular Hemoglobin 30.3 pg (25.0-34.0); Mean Corpuscular Volume 91.7 fL (80.0-100.0); Mean Platelet Volume 9.6 fL (9.4-12.4); Monocytes # (auto) 0.44 K/uL (0.11-0.59); Monocytes % (auto) 3.9 %; Neutrophils # (auto) 9.69 K/uL (1.40-6.50); Neutrophils % (auto) 86.2 %; Platelet Count 263 K/uL (130-400); RDW Coefficient of Variation 12.5 % (11.5-14.5); RDW Standard Deviation 41.6 fL (36.4-46.3); Red Blood Count 4.33 M/uL (4.20-5.40); White Blood Count 11.24 K/ul (4.8-10.8)
[2024-01-11 07:51] VITALS: TEMP 98.1
[2024-01-11 07:54] LABS: BUN Creatinine Ratio 27.3 (10-20); Calcium 8.8 mg/dl (8.6-10.3); Creatinine Clr Calc Pharmacy 122.9 ml/min; Est GFR (African American) 121.1 ml/min; Est GFR (Non-African American) 104.5 ml/min; Phosphorus 3.5 mg/dl (2.5-4.9); Potassium 4.1 mmol/L (3.5-5.1)
[2024-01-11] MEDS: methylPREDNISolone 4 MG TAB PO SCH (08:32)
[2024-01-11] MEDS: DICLOFENAC SODIUM 75 MG TABCR PO SCH (10:49)
--- NOTE | 2024-01-11 11:09 | Discharge Summary ---
Discharge Summary Date of Service January 11, 2024 Principal Dx & Hospital Course #1 = Principal Diagnosis (1) Right upper quadrant pain: (2) Mood disorder: (3) Asthma: (4) HLD (hyperlipidemia): (5) Prediabetes: Plan Ms. Susanne Jarvis is a 48-year-old lady with PMH of kidney stones, mood disorder, anxiety, depression, HLD, prediabetes, asthma presented to the ED with complaint of right-sided belly pain since waking up on Saturday morning at 6:30 AM. Patient reports 1 episode of throwing up associated with pain, reports no relief with Tylenol at home, reports 1 episode of shortness of breath prior to arrival. Extensive imaging was performed without clear etiology of pain. Patient evaluated by Cardiology who recommended OP stress testing as well as losartan,, asa, statin therapy. Patient evaluated by Pain management who also was unable to pinpoint etiology of pain. Patient with improvement on medrol dose christianne. Offered physical therapy and ot evals, however, patient declined. On day of discharge, vital signs and labs reviewed and stable. Admission imaging reviewed and stable. Patient verbalized understanding of regimen. #Right flank pain, suspect musculoskeletal Admitting CTAP: No renal stones or acute infectious or inflammatory findings. Hepatomegaly and hepatic steatosis noted, patient has been informed and discussed the importance of weight loss and GI follow-up as an outpatient. Lt Lung base w/ 5 mm pulmonary nodule noted, patient has been informed to follow-up CT scan in about 3 months time. Finding of uterine fibroids noted which also has been informed to the patient and requested that she follow-up with her gynecology as an outpatient. CTA chest with no evidence of PE. X-ray of right: No evidence of fracture or acute abnormalities. US gallbladder suggestive of hepatic steatosis, no evidence of gallstone or biliary ductal dilatation. MRI T and L spine w/ no acute abn. LFT, UA WNL. test negative. Urine toxicology screen positive for MDMA, likely false positive result due to patient taking Wellbutrin. Discharge with 14 days diclofenac BID as well as pantoprazole BID while on medication Discharge with lidocaine patches Encouraged Tylenol prn and heat/ice prn Complete medrol dose christianne Offered PT/OT patient declined #Atypical Chest pain #Abnormal EKG: EKG shows T wave inversions, no chest pain, negative troponin. Troponin x 3 negative,Echo with EF of 60 to 65%, no regional wall motion abnormality. Ventricular systolic function WNL. Cardiology evaluated for chest pain rule out. f/u cardio on dc, op stress test . start asa 81 mg daily #HTN Start Losartan 12.5mg daily #HLD Start atorvastatin 40mg daily #[place] #Hx asthma: Use albuterol inhaler as needed at home CT chest negative for PE or acute findings Pt reports resolution of her sob. Hx of mood disorder: Continue Lexapro/Wellbutrin, monitor QTc Hx prediabetes: Hold metformin while inpatient, recheck A1c - 5.5. SSI. Left lung nodule: CT showed 5 mm pulmonary nodule, follow-up outpatient3-month follow-up chest CT recommended Notes For Next Care Provider follow-up outpatient3-month follow-up chest CT recommended OP Stress testing recommended Medication Changes From Visit Continue ASA 81 mg/day Start Losartan 12.5 mg/day Start Atorvastatin 40 mg/day Diclofenac 75mg two times a day for 14 days Pantoprazole 40mg two times a day for 14 days -Lidocaine patch daily to area of discomfort -Utilize Ice/Heat compresses as needed Medrol dose christianne Admission HPI Per Admitting Provider The patient is a 48-year-old female with a past medical history of kidney stones, mood disorder, anxiety, depression, HLD, prediabetes, asthma who presents to the ED today with complaints of right upper quadrant pain and dyspnea with exertion x 1 day. Reports that she has had kidney stones in the past and it felt similar. Also reported vomiting x 1 yesterday. Denies any urinary symptoms, denies any hematuria. Does report some intermittent wheezing. On exam, there is right upper quadrant tenderness even with light palpation. Reports she made a telemedicine appointment with her PCP today and was directed to come to the ER. Denies any fevers/chest pain/blood in stool/cough/respiratory symptoms. On arrival to the ED, UA was negative, labs are fairly unremarkable Her EKG showed sinus rhythm with some T wave inversions Troponin was negative Chest CTA showed: 1. No acute abnormality and in particular no evidence of pulmonary embolus. 2. Small pulmonary nodule is in the left lower lobe. According to Fleischner criteria, no follow-up is required in low risk patients, in high-risk patients, a 12 month follow-up CT can be optionally performed. Abdomen/pelvis CT showed: 1. No acute infectious or inflammatory findings are identified in the abdomen or pelvis. 2. Hepatomegaly and hepatic steatosis. 3. A 5 mm pulmonary nodule is seen at the left lung base. This is not highly suspicious, and a 3-month follow-up chest CT is recommended for reassessment and full evaluation of the thorax. 4. The appearance of the uterus suggests fibroids. 5. Additional findings as above. Admission Exam Per Admitting Provider Constitutional: WD/WN, vitals as above Eyes: PERRL, conjunctivae normal, anicteric sclerae ENMT: external ear and nose normal, oropharynx normal Neck: trachea midline, no thyromegaly Respiratory: normal respiratory effort, lungs clear to auscultation + audible wheezes (Expiratory) Cardiovascular: RRR, no murmur, no edema Chest (Breasts): normal inspection/palpation of breasts Gastrointestinal (Abdomen): normal bowel sounds, soft, nontender, no hepatosplenomegaly Inspection/Auscultation: normal bowel sounds Percussion/Palpation: + abdomen tender; no guarding Musculoskeletal: no cyanosis or clubbing, extremities motor strength 5/5 Skin: no rashes, warm and dry Neurologic: patellar DTR's 2+ bilat, sensation intact and PERRL, EOMI, accommodation nl, no face palsy, no dysarthria Psychiatric: A+Ox3, euthymic affect Lymphatic: no cervical or axillary lymphadenopathy Discharge Exam Constitutional WD/WN, vitals as above (resting peacefully upon entering room ) Respiratory normal respiratory effort, lungs clear to auscultation Cardiovascular RRR, no murmur, no edema Musculoskeletal no cyanosis or clubbing, extremities motor strength 5/5 Neurologic PERRL, EOMI, accommodation nl, no face palsy, no dysarthria Updated Medication List Medication Instructions Recorded Confirmed Type albuterol sulfate 90 mcg/actuation 2 puff inhalation Q6H PRN chest 01/08/24 01/08/24 History aerosol inhaler tightness bupropion HCl 300 mg 24 hr tablet, 300 mg PO DAILY 01/08/24 01/08/24 History extended release (Wellbutrin XL) cetirizine 10 mg tablet 10 mg PO QAM 01/08/24 01/08/24 History escitalopram oxalate 10 mg tablet 10 mg PO DAILY 01/08/24 01/08/24 History escitalopram oxalate 20 mg tablet 20 mg PO DAILY 01/08/24 01/08/24 History fluticasone propionate 50 2 spray intranasal QAM 01/08/24 01/08/24 History mcg/actuation nasal spray,suspension metformin 500 mg tablet,extended 500 mg PO DAILY 01/08/24 01/08/24 History release 24 hr sumatriptan succinate 50 mg tablet 50 mg PO DIRECTED PRN Migraine 01/08/24 01/08/24 History Headache aspirin 81 mg tablet,delayed 81 mg PO QAM 30 days #30 tabs 01/11/24 Rx release atorvastatin 40 mg tablet 40 mg PO QAM 30 days #30 tabs 01/11/24 Rx diclofenac sodium 75 mg 75 mg PO BID 14 days #28 tabs 01/11/24 Rx tablet,delayed release lidocaine 5 % topical patch 1 patch transdermal QAM #14 ea 01/11/24 Rx losartan 25 mg tablet 12.5 mg (1/2 x 25 mg) PO QAM 30 01/11/24 Rx days #15 tabs methylprednisolone 4 mg tablet See Rx Instructions .Route 01/11/24 Rx .COMPLEX #15 tabs pantoprazole 40 mg tablet,delayed 40 mg PO BID 14 days #28 tabs 01/11/24 Rx release Hospital Stay Data Consultations 01/08/24 13:22 ED Decision to Admit Stat 01/08/24 20:29 Consult Cardiology Routine 01/10/24 10:55 Consult Pain Management Routine Diagnostic Imagining Performed 01/08/24 08:48 CT abd pelvis wo con Stat 01/08/24 11:49 CT angio chest PE protocol Stat 01/09/24 US gallbladder Routine 01/10/24 09:24 MR lumbar spine wo/w con Routine MRI Thoracic [MR thoracic spine wo/w con] Routine Pending Results Patient Have Any Pending Studies at Discharge: No Discharge Instructions Given to Patient (Per Discharging Provider) You were admitted for evaluation of multiple concerns. Cardiology evaluated you for chest pain, high cholesterol and EKG changes. They recommended the following: Continue ASA 81 mg/day Start Losartan 12.5 mg/day for blood pressure Start Atorvastatin 40 mg/day for for cholesterol You will need to discuss Stress testing with your Primary Care Provider. You were evaluated for side pain. You underwent multiple scans which suggests this pain is related to musculoskeletal issues. You were seen by Pain management. It is recommended you trial the following -Diclofenac 75mg two times a day for 14 days -Please take Pantoprazole 40mg two times a day with this diclofenac -Lidocaine patch daily to area of discomfort -Utilize Ice/Heat compresses as needed -Complete the following Steroid taper: Day 1: (1 tablet) after dinner, (2 tablets) at bedtime Day 2: (1 tablet) before breakfast, (1 tablet) after lunch, (1 tablet) after dinner, (2 tablets) at bedtime Day 3: (1 tablet) before breakfast, (1 tablet) after lunch, (1 tablet) after dinner, (1 tablet) at bedtime Day 4: (1) before breakfast, (1) after lunch, (1) at bedtime Day 5: (1 tablet) before breakfast, (1 tablet) at bedtime Day 6: (1 tablet) before breakfast Total Time Total Time Spent Total Time Spent (In Minutes): 45
[2024-01-11 11:51] VITALS: BP 148/72; RESP 16
[2024-01-11 12:03] VITALS: PULSE 74
[2024-01-11] MEDS ORDERED: methylPREDNISolone 4 MG TAB PO SCH (21:00)
[2024-01-12] MEDS ORDERED: methylPREDNISolone 4 MG TAB PO SCH (07:00)
[2024-01-12 11:57] LABS: MDA negative; MDEA negative; MDMA (Ecstasy) Urine, Confirm negative
[2024-01-13] MEDS ORDERED: methylPREDNISolone 4 MG TAB PO SCH (07:00)
[2024-01-14] MEDS ORDERED: methylPREDNISolone 4 MG TAB PO SCH (07:00)
[2024-01-15] MEDS ORDERED: methylPREDNISolone 4 MG TAB PO SCH (07:00)
== END 2024-01-11 14:09 | disposition home or self-care (01) | DRG 392 ==
LOC: ED 08:24 → 2W 13:51 → SUATTDRO 13:51 → 2W 15:08
DX: R94.31 Abnormal electrocardiogram [ECG] [EKG]; E66.9 Obesity, unspecified; E78.5 Hyperlipidemia, unspecified; R06.09 Other forms of dyspnea; Z79.84 Long term (current) use of oral hypoglycemic drugs; R91.1 Solitary pulmonary nodule; J45.909 Unspecified asthma, uncomplicated; Z87.442 Personal history of urinary calculi; F39 Unspecified mood [affective] disorder; Z87.891 Personal history of nicotine dependence; K76.0 Fatty (change of) liver, not elsewhere classified; I10 Essential (primary) hypertension; R73.03 Prediabetes; R07.89 Other chest pain; Z88.0 Allergy status to penicillin; R10.11 Right upper quadrant pain; F41.9 Anxiety disorder, unspecified